=== PATIENT | male | born 1955 | race Caucasian/White ===

== ENCOUNTER 2016-09-18 09:31 | Day surgery (SDC) | payer OTHER, BC ==
[~2016-09-18] VITALS: Ht 190.5 cm; Wt 156.0 kg
[2016-09-18] MEDS: hydroCHLOROthiazide 25 MG TAB PO SCH (09:00)
[2016-09-18] MEDS: LISINOPRIL 40 MG TAB PO SCH (09:00)
[2016-09-18] MEDS: ENOXAPARIN 40 MG/0.4 ML SYRINGE (J1650) SC SCH (09:00)
[~2016-09-18 09:31] MED LIST: ACET650T12 PO; ASPI81TA83; ASPI81TAEC PO; COLA100C2; GLIM2TAB PO; GLIMEPIRIDE 2 MG TAB PO SCH; GLUC1000; LISI10TA4; LISI20TA PO; LOPR50TA; MELO15TA4 PO; METF1000 PO; METO50TA2 PO; PIOG15TA3 PO; SIMV10TA2; SIMV10TA2 PO; SYNT75TA PO; VICO5TAB; VITA100066 PO
[2016-09-18] MEDS ORDERED: LR 1,000 ML IV ONE (09:45)
[2016-09-18 10:24] LABS: ANION GAP 8 MEQ/L (8-16); BLOOD UREA NITROGEN 21 MG/DL (7-18); CALCIUM LEVEL 9.3 MG/DL (8.8-10.2); CARBON DIOXIDE LEVEL 26 MEQ/L (21-32); CHLORIDE LEVEL 101 MEQ/L (98-107); CREATININE FOR GFR 0.91 MG/DL (0.70-1.30); GLOMERULAR FILTRATION RATE > 60.0 (>49); GLUCOSE, FASTING 316 MG/DL (80-110); POTASSIUM SERUM 5.1 MEQ/L (3.5-5.1); SODIUM LEVEL 135 MEQ/L (136-145)
[2016-09-18] MEDS ORDERED: PROPOFOL 200 MG/20 ML VIAL As Ordered ONE (10:27)
[2016-09-18] MEDS ORDERED: ROCURONIUM BROMIDE 50 MG/5 ML VIAL As Ordered ONE ×4 (10:27→15:21)
[2016-09-18] MEDS ORDERED: MIDAZOLAM INJ 2 MG/2 ML VIAL (J2250) As Ordered ONE (10:28)
[2016-09-18] MEDS ORDERED: ONDANSETRON 4MG/2ML VIAL (J2405) As Ordered ONE ×2 (10:28→17:29)
[2016-09-18] MEDS ORDERED: LIDOCAINE 2% INJ 100 MG/5 ML SDV (FOR ANES.) As Ordered ONE (10:28)
[2016-09-18] MEDS ORDERED: fentaNYL 100 MCG/2 ML INJECTION (J3010) As Ordered ONE ×5 (10:28→17:29)
[2016-09-18] MEDS ORDERED: METOPROLOL TART 25 MG TABLET As Ordered ONE (11:49)
[2016-09-18] MEDS ORDERED: LIDOCAINE 1% SDV INJ 30 ML VIAL As Ordered ONE (11:56)
[2016-09-18] MEDS ORDERED: BUPIVACAINE HCL 0.25% 30 ML VIAL As Ordered ONE (11:56)
[2016-09-18] MEDS ORDERED: METOPROLOL TART 25 MG TABLET PO ONE (12:00)
[2016-09-18] MEDS ORDERED: SUCCINYLCHOLINE 100 MG/5 ML SYRINGE (J0330) As Ordered ONE (12:28)
[2016-09-18] MEDS ORDERED: ePHEDrine SULFATE 25 MG/5 ML(5MG/ML) SYRINGE As Ordered ONE (13:07)
[2016-09-18] MEDS ORDERED: METOPROLOL 5 MG/5 ML VIAL As Ordered ONE (16:11)
[2016-09-18] MEDS ORDERED: ESMOLOL INJ 100MG/10ML VIAL As Ordered ONE (16:13)
[2016-09-18] MEDS ORDERED: NEOSTIGMINE 1MG/ML 5 ML SYRINGE (J2710) As Ordered ONE (16:20)
[2016-09-18] MEDS: fentaNYL 100 MCG/2 ML INJECTION (J3010) IV PRN ×3 (16:40→17:52)
[2016-09-18] MEDS ORDERED: NORCO, ANEXSIA 5/325MG TABLET (HYDROcodone/ACETAMINOPHEN) PO PRN (17:00)
[2016-09-18] MEDS ORDERED: KETOROLAC 30 MG/ML VIAL (J1885) IV PRN (17:00)
[2016-09-18] MEDS ORDERED: MORPHINE 4 MG/ML 1ML SYRINGE IV PRN (17:00)
[2016-09-18] MEDS ORDERED: ACETAMINOPHEN TAB 650MG DOSE (2X325MG) PO PRN (17:00)
[2016-09-18] MEDS ORDERED: ONDANSETRON 4MG/2ML VIAL (J2405) IV PRN ×2 (17:00→17:15)
[2016-09-18] MEDS ORDERED: KETOROLAC 30 MG/ML VIAL (J1885) As Ordered ONE (17:13)
[2016-09-18] MEDS ORDERED: LR 1,000 ML IV SCH (17:15)
[2016-09-18] MEDS ORDERED: HYDROmorphone HCL 1 MG/ML SYRINGE (J1170) As Ordered ONE (17:47)
[2016-09-18] MEDS: HYDROmorphone HCL 1 MG/ML SYRINGE (J1170) IV PRN ×3 (18:05→18:20)
[2016-09-18] MEDS ORDERED: NORCO, ANEXSIA 5/325MG TABLET (HYDROcodone/ACETAMINOPHEN) As Ordered ONE (18:24)
[2016-09-18 19:15] VITALS: BP 140/76
[2016-09-18 20:45] VITALS: BP 129/74
[2016-09-18] MEDS ORDERED: SIMVASTATIN 10 MG TAB PO SCH (21:00)
[2016-09-18 21:45] VITALS: BP 136/73
[2016-09-18] MEDS: LR 1,000 ML IV SCH (22:12)
[2016-09-18] MEDS: ceFAZolin SOD 2 GM in D5W MINI-BAG PLUS 50 ML IV SCH (22:12)
[2016-09-18] MEDS: SENOKOT S TAB PO SCH (22:13)
[2016-09-18] MEDS: METOPROLOL TART 50 MG TAB PO SCH (22:13)
[2016-09-18 22:45] VITALS: BP 142/83
[2016-09-18 23:45] VITALS: BP 156/81
[2016-09-19 00:45] VITALS: BP 131/75
[2016-09-19] MEDS: LR 1,000 ML IV SCH ×2 (00:58→08:41)
[2016-09-19] MEDS: NORCO, ANEXSIA 5/325MG TABLET (HYDROcodone/ACETAMINOPHEN) PO PRN ×3 (02:12→15:10)
[2016-09-19 04:45] VITALS: BP 133/78
[2016-09-19] MEDS: ceFAZolin SOD 2 GM in D5W MINI-BAG PLUS 50 ML IV SCH (05:33)
[2016-09-19] MEDS ORDERED: LEVOTHYROXINE 0.075 MG TAB (75 MCG) PO SCH (06:00)
[2016-09-19 06:56] LABS: ADD MORPHOLOGY? YES; BASO # 0.1 K/mm3 (0.0-0.2); BASO % 0.6 % (0.0-1.0); EOS # 0.1 K/mm3 (0.0-0.50); EOS % 0.7 % (0.0-3.0); LARGE UNSTAINED CELL # 0.3 K/mm3 (0.0-0.4); LARGE UNSTAINED CELL % 2.1 % (0.0-4.0); LYMPH # 2.8 K/mm3 (1.5-4.5); LYMPH % 19.9 % (24.0-44.0); MEAN CORPUSCULAR HEMOGLOBIN 22.5 pg (27.0-33.0); MEAN CORPUSCULAR HGB CONC 31.6 g/dl (32.0-36.5); MEAN CORPUSCULAR VOLUME 71.1 fl (80.0-96.0); MONO # 0.9 K/mm3 (0.0-0.8); MONO % 6.1 % (0.0-5.0); NEUTROPHILS % 70.5 % (36.0-66.0); PLATELET COUNT, AUTOMATED 291 k/mm3 (150-450); RED CELL DISTRIBUTION WIDTH 16.3 % (11.5-14.5); WHITE BLOOD COUNT 14.2 K/mm3 (4.0-10.0)
[2016-09-19 06:57] LABS: ANION GAP 8 MEQ/L (8-16); BLOOD UREA NITROGEN 18 MG/DL (7-18); CALCIUM LEVEL 8.1 MG/DL (8.8-10.2); CARBON DIOXIDE LEVEL 28 MEQ/L (21-32); CHLORIDE LEVEL 99 MEQ/L (98-107); CREATININE FOR GFR 1.03 MG/DL (0.70-1.30); GLOMERULAR FILTRATION RATE > 60.0 (>49); GLUCOSE, FASTING 284 MG/DL (80-110); POTASSIUM SERUM 4.2 MEQ/L (3.5-5.1); SODIUM LEVEL 135 MEQ/L (136-145)
[2016-09-19] MEDS ORDERED: GLIMEPIRIDE 2 MG TAB PO SCH (07:30)
[2016-09-19 07:44] LABS: ANISOCYTOSIS 1+; HYPOCHROMASIA 1+; MICROCYTOSIS 2+
[2016-09-19] MEDS ORDERED: metFORMIN (GLUCOPHAGE) 1000 MG TABLET PO SCH (08:00)
[2016-09-19 08:40] VITALS: BP 133/78
[2016-09-19] MEDS: LISINOPRIL 40 MG TAB PO SCH (08:40)
[2016-09-19] MEDS: SENOKOT S TAB PO SCH (08:40)
[2016-09-19] MEDS: METOPROLOL TART 50 MG TAB PO SCH (08:40)
[2016-09-19] MEDS: hydroCHLOROthiazide 25 MG TAB PO SCH (08:41)
[2016-09-19] MEDS: ENOXAPARIN 40 MG/0.4 ML SYRINGE (J1650) SC SCH (08:41)
[2016-09-19] MEDS ORDERED: CELE-19 PO (12:21)
[2016-09-19 14:00] VITALS: BP 168/82
--- NOTE | 2016-09-19 18:32 | ECGEPIP ---
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
--- NOTE | 2016-10-08 11:37 | RO ---
DATE OF PROCEDURE: 09/18/2016 PREPROCEDURE DIAGNOSIS: Incisional hernia. POSTPROCEDURE DIAGNOSIS: Incisional hernia. PROCEDURE PERFORMED: Robotic-assisted laparoscopic incisional hernia repair with placement of Ventralight mesh, 12 cm round mesh was placed. ANESTHESIA: General anesthesia. ESTIMATED BLOOD LOSS: 25 mL. COMPLICATIONS: None. DRAINS: None. REMARKS: The patient tolerated the procedure well. PROCEDURE NOTE: Mr. Morin is a 61-year-old gentleman, morbidly obese, Body Mass Index (BMI) of 43, who awhile ago had an accident while at work and needed emergency laparotomy and splenectomy. He subsequently developed midline incisional hernia just above his umbilicus. The patient received Ancef 2 grams IV preoperatively. He was brought to the operating room and placed supine on the table. Compression boots placed on both legs for deep vein thrombosis (DVT) prophylaxis. General endotracheal anesthesia was started. His abdomen was then prepped and draped in usual sterile fashion. After a surgical time-out, we began our surgery. Entry to the abdomen was done through an incision on the left upper quadrant area. A Veress needle was inserted. Intra-abdominal insufflation started to a pressure of 15 mmHg. Using the same incision, a 12 mm port was placed under direct vision of laparoscope. On entry, there were some omental adhesions right around where the entry was. The patient was placed in a slight right lateral decubitus position. A working port was placed over the left lower quadrant area. Lysis of adhesions performed to free up the area on the midportion of the left lateral side of the abdomen and around the initial port site of entry. A robotic camera trocar was then placed in between the two trocars on the left lateral side. The da Jesus robot tower was then maneuvered in place. The trocars docked onto the robot. I took control of the camera and instruments at the surgeon's console. On diagnostic laparoscopy, there was good amount of adhesions covering the defect, which includes portions of the small bowel adhered inside of the hernia defect. Meticulous dissection was performed to free up the bowel, as well as the omentum. It took about an hour to lyse all the adhesions and free up the bowel. Once this was done, we also brought down the falciform ligament to accommodate the mesh placement. The hernia sac was dissected free off onto the abdominal wall and removed. The preperitoneal space was dissected to decrease the tension at the hernia edges. Using a 0 V-Loc. the hernia defect was closed in a running fashion. Two strands of V-Loc was used at the superior and inferior edge, which met at the middle. While doing this, the abdominal pressure was sequentially decreased to allow for closure. Once the abdomen was closed, we measured the defect, which was about 6 cm vertically. I chose a 12 cm round Ventralight composite mesh. This was introduced into the abdomen, pulled the drain for the insufflation of the balloon was pulled out at the middle of the incision. The balloon was inflated. The mesh was then secured into the abdomen using a 2 V-Loc circumferentially run around the abdomen with adequate coverage of the hernia defect. After doing so, we surveyed the abdomen and removed the hernia sac. The abdomen was then deflated. All ports removed. I scrubbed back in. The fascial defect over the 12 mm port was closed with 0 Vicryl in a mattress fashion. The rest of the skin incisions were closed with #4-0 Monocryl in a subcuticular fashion. Dermabond was then used for dressing. The patient was promptly awakened, extubated, brought to recovery room stable.
== END 2016-09-19 15:50 | disposition home or self-care (01) ==
LOC: M SDC 09:31 → M MS5PR 16:58 → M SDC 09-19 15:50
PROVIDERS: ATTEND Surgery
DX: K43.0 Incisional hernia with obstruction, without gangrene (principal); I10 Essential (primary) hypertension; E78.00 Pure hypercholesterolemia, unspecified; E11.9 Type 2 diabetes mellitus without complications; E03.9 Hypothyroidism, unspecified; M12.9 Arthropathy, unspecified; E66.01 Morbid (severe) obesity due to excess calories; Z79.899 Other long term (current) drug therapy; Z79.82 Long term (current) use of aspirin
CPT/HCPCS: 36415; 49654; 80048; 85025; 93005; 96372; 96374; 96375; C1781; J0330; J0690; J1170; J1650; J1885; J2250; J2405; J2710; J3010

== ENCOUNTER 2017-07-08 10:23 | Inpatient (IN) | payer BC, OTHER ==
[2017-07-08] MEDS: METOPROLOL 5 MG/5 ML VIAL IV ×3 (11:02→11:20)
[2017-07-08 11:08] LABS: BASO # 0.1 10^3/uL (0.0-0.2); BASO % 1.2 % (0.0-1.0); EOS # 0.3 10^3/uL (0.0-0.50); HEMATOCRIT 30.8 % (42.0-52.0); HEMOGLOBIN 10.1 g/dl (14.0-18.0); IMMATURE GRANULOCYTE % 0.3 % (0-3.0); LYMPH # 2.6 10^3/uL (1.5-4.5); LYMPH % 25.6 % (24.0-44.0); MEAN CORPUSCULAR HEMOGLOBIN 21.5 pg (27.0-33.0); MEAN CORPUSCULAR HGB CONC 32.8 g/dl (32.0-36.5); MEAN CORPUSCULAR VOLUME 65.7 fl (80.0-96.0); MONO # 0.9 10^3/uL (0.0-0.8); MONO % 8.5 % (0.0-5.0); NEUTROPHILS # 6.1 10^3/uL (1.8-7.7); NEUTROPHILS % 61.4 % (36.0-66.0); PLATELET COUNT, AUTOMATED 450 10^3/uL (150-450); RED BLOOD COUNT 4.69 10^6/uL (4.30-6.10); RED CELL DISTRIBUTION WIDTH 16.7 % (11.5-14.5)
[2017-07-08 11:27] LABS: INR 0.98; PROTHROMBIN TIME 13.1 SECONDS (12.4-14.5)
[2017-07-08 11:28] LABS: ANION GAP 9 MEQ/L (8-16); BLOOD UREA NITROGEN 23 MG/DL (7-18); CALCIUM LEVEL 9.2 MG/DL (8.8-10.2); CARBON DIOXIDE LEVEL 26 MEQ/L (21-32); CHLORIDE LEVEL 103 MEQ/L (98-107); CPK CREATINE PHOSPHOKINASE 77 U/L (39-308); CREATININE FOR GFR 0.93 MG/DL (0.70-1.30); GLOMERULAR FILTRATION RATE > 60.0 (>49); GLUCOSE, FASTING 140 MG/DL (70-100); PARTIAL THROMBOPLASTIN TIME 29.8 SECONDS (26.8-37.9); POTASSIUM SERUM 4.2 MEQ/L (3.5-5.1); SODIUM LEVEL 138 MEQ/L (136-145); TROPONIN I < 0.02 NG/ML (< 0.10)
[2017-07-08 11:29] LABS: CK-MB VALUE MASS 1.2 NG/ML (0.0-3.6); MB/CK RELATIVE INDEX 1.55 (< OR =4)
[2017-07-08 11:38] LABS: PHOSPHORUS LEVEL 3.5 MG/DL (2.5-4.9)
[2017-07-08 11:38] LABS: FREE T4 1.07 NG/DL (0.76-1.46); MAGNESIUM LEVEL 2.1 MG/DL (1.8-2.4)
[2017-07-08 12:02] LABS: BEDSIDE GLUCOSE 145 MG/DL (80-115)
[2017-07-08] MEDS: DIGOXIN INJ 0.5 MG/2 ML AMP (J1160) IV (12:58)
[2017-07-08] MEDS ORDERED: GLUCAGON FOR INJ 1 MG VIAL (J1610) SC (13:30)
[2017-07-08] MEDS ORDERED: GLUCOSE 4 GM CHEW TABLET PO (13:30)
[2017-07-08] MEDS ORDERED: DEXTROSE 50% 50 ML SYRINGE IV (13:30)
[2017-07-08] MEDS: ENOXAPARIN 120 MG/0.8 ML SYR (J1650) SC (14:26)
[2017-07-08 17:49] LABS: BEDSIDE GLUCOSE 146 MG/DL (80-115)
[2017-07-08] MEDS: HumaLOG INSULIN (NovoLOG) PER UNIT SC ×2 (18:03→20:21)
[2017-07-08 18:53] LABS: CPK CREATINE PHOSPHOKINASE 69 U/L (39-308); MB/CK RELATIVE INDEX 1.44 (< OR =4); TROPONIN I < 0.02 NG/ML (< 0.10)
[2017-07-08] MEDS: METOPROLOL TART 50 MG TAB PO (20:20)
[2017-07-08 21:58] LABS: BEDSIDE GLUCOSE 159 MG/DL (80-115)
[2017-07-08] MEDS ORDERED: SLF 3 ML SYR IV (23:15)
[2017-07-09 02:17] LABS: CPK CREATINE PHOSPHOKINASE 63 U/L (39-308); MB/CK RELATIVE INDEX 1.58 (< OR =4); TROPONIN I < 0.02 NG/ML (< 0.10)
[2017-07-09 05:35] LABS: BASO # 0.1 10^3/uL (0.0-0.2); BASO % 1.3 % (0.0-1.0); EOS # 0.4 10^3/uL (0.0-0.50); EOS % 3.6 % (0.0-3.0); HEMATOCRIT 28.6 % (42.0-52.0); HEMOGLOBIN 9.4 g/dl (14.0-18.0); IMMATURE GRANULOCYTE % 0.3 % (0-3.0); LYMPH # 3.9 10^3/uL (1.5-4.5); LYMPH % 39.3 % (24.0-44.0); MEAN CORPUSCULAR HEMOGLOBIN 21.7 pg (27.0-33.0); MEAN CORPUSCULAR HGB CONC 32.9 g/dl (32.0-36.5); MEAN CORPUSCULAR VOLUME 66.1 fl (80.0-96.0); MONO # 0.9 10^3/uL (0.0-0.8); NEUTROPHILS # 4.6 10^3/uL (1.8-7.7); NEUTROPHILS % 46.5 % (36.0-66.0); PLATELET COUNT, AUTOMATED 376 10^3/uL (150-450); RED BLOOD COUNT 4.33 10^6/uL (4.30-6.10); RED CELL DISTRIBUTION WIDTH 16.5 % (11.5-14.5)
[2017-07-09 05:57] LABS: ALBUMIN 3.2 GM/DL (3.2-5.2); ALKALINE PHOSPHATASE 33 U/L (45-117); ALT/SGPT 11 U/L (12-78); ANION GAP 8 MEQ/L (8-16); AST/SGOT 7 U/L (7-37); BILIRUBIN,TOTAL 0.8 MG/DL (0.2-1.0); BLOOD UREA NITROGEN 19 MG/DL (7-18); CALCIUM LEVEL 8.6 MG/DL (8.8-10.2); CARBON DIOXIDE LEVEL 26 MEQ/L (21-32); CHLORIDE LEVEL 105 MEQ/L (98-107); CREATININE FOR GFR 0.86 MG/DL (0.70-1.30); GLOMERULAR FILTRATION RATE > 60.0 (>49); GLUCOSE, FASTING 98 MG/DL (70-100); MAGNESIUM LEVEL 2.3 MG/DL (1.8-2.4); POTASSIUM SERUM 3.7 MEQ/L (3.5-5.1); SODIUM LEVEL 139 MEQ/L (136-145); TOTAL PROTEIN 6.4 GM/DL (6.4-8.2)
[2017-07-09] MEDS: SLF 3 ML SYR IV ×3 (06:37→21:08)
[2017-07-09] MEDS: LEVOTHYROXINE 75MCG TABLET (0.075MG) PO (06:37)
[2017-07-09] MEDS: HumaLOG INSULIN (NovoLOG) PER UNIT SC ×4 (07:30→20:59)
[2017-07-09] MEDS: METOPROLOL TART 50 MG TAB PO ×2 (09:00→21:08)
[2017-07-09] MEDS: APIXABAN 5 MG TAB (ELIQUIS) PO ×2 (10:05→21:07)
[2017-07-09] MEDS: SIMVASTATIN 10 MG TAB PO (10:12)
[2017-07-09 11:11] LABS: CPK CREATINE PHOSPHOKINASE 63 U/L (39-308); MB/CK RELATIVE INDEX 1.58 (< OR =4); TROPONIN I < 0.02 NG/ML (< 0.10)
[2017-07-09 12:07] LABS: BEDSIDE GLUCOSE 192 MG/DL (80-115)
[2017-07-09] MEDS: ACETAMINOPHEN TAB 650MG DOSE (2X325MG) PO ×2 (13:55→21:08)
[2017-07-09] MEDS ORDERED: PROPOFOL 200 MG/20 ML VIAL As Ordered (14:33)
[2017-07-09] MEDS ORDERED: LIDOCAINE 2% INJ 100 MG/5 ML SDV (FOR ANES.) As Ordered (14:33)
[2017-07-09] MEDS ORDERED: fentaNYL 100 MCG/2 ML INJECTION (J3010) As Ordered (14:34)
[2017-07-09] MEDS ORDERED: MIDAZOLAM INJ 2 MG/2 ML VIAL (J2250) As Ordered (14:34)
[2017-07-09] MEDS ORDERED: ONDANSETRON 4MG/2ML VIAL (J2405) As Ordered (14:37)
[2017-07-09] MEDS: CETACAINE SPRAY 5GM As Ordered (16:17)
[2017-07-09 17:40] LABS: BEDSIDE GLUCOSE 115 MG/DL (80-115)
[2017-07-09 21:11] LABS: BEDSIDE GLUCOSE 181 MG/DL (80-115)
[2017-07-10 05:51] LABS: BASO # 0.1 10^3/uL (0.0-0.2); BASO % 1.4 % (0.0-1.0); EOS # 0.4 10^3/uL (0.0-0.50); EOS % 4.1 % (0.0-3.0); HEMATOCRIT 28.6 % (42.0-52.0); HEMOGLOBIN 9.4 g/dl (14.0-18.0); IMMATURE GRANULOCYTE % 0.3 % (0-3.0); LYMPH # 2.4 10^3/uL (1.5-4.5); LYMPH % 24.3 % (24.0-44.0); MEAN CORPUSCULAR HEMOGLOBIN 21.7 pg (27.0-33.0); MEAN CORPUSCULAR HGB CONC 32.9 g/dl (32.0-36.5); MEAN CORPUSCULAR VOLUME 65.9 fl (80.0-96.0); MONO % 9.8 % (0.0-5.0); NEUTROPHILS # 5.9 10^3/uL (1.8-7.7); NEUTROPHILS % 60.1 % (36.0-66.0); PLATELET COUNT, AUTOMATED 388 10^3/uL (150-450); RED BLOOD COUNT 4.34 10^6/uL (4.30-6.10); RED CELL DISTRIBUTION WIDTH 16.3 % (11.5-14.5); WHITE BLOOD COUNT 9.7 10^3/uL (4.0-10.0)
[2017-07-10] MEDS: LEVOTHYROXINE 75MCG TABLET (0.075MG) PO (06:05)
[2017-07-10 06:06] LABS: ALBUMIN 3.4 GM/DL (3.2-5.2); ALBUMIN/GLOBULIN RATIO 1.06 (1.00-1.93); ALKALINE PHOSPHATASE 36 U/L (45-117); ALT/SGPT 13 U/L (12-78); ANION GAP 6 MEQ/L (8-16); AST/SGOT 6 U/L (7-37); BILIRUBIN,TOTAL 0.9 MG/DL (0.2-1.0); BLOOD UREA NITROGEN 17 MG/DL (7-18); CALCIUM LEVEL 8.6 MG/DL (8.8-10.2); CARBON DIOXIDE LEVEL 30 MEQ/L (21-32); CHLORIDE LEVEL 103 MEQ/L (98-107); CREATININE FOR GFR 0.91 MG/DL (0.70-1.30); GLOMERULAR FILTRATION RATE > 60.0 (>49); GLUCOSE, FASTING 133 MG/DL (70-100); MAGNESIUM LEVEL 2.3 MG/DL (1.8-2.4); POTASSIUM SERUM 3.8 MEQ/L (3.5-5.1); SODIUM LEVEL 139 MEQ/L (136-145); TOTAL PROTEIN 6.6 GM/DL (6.4-8.2)
[2017-07-10] MEDS: SLF 3 ML SYR IV (06:06)
[2017-07-10] MEDS: HumaLOG INSULIN (NovoLOG) PER UNIT SC ×2 (08:37→12:14)
[2017-07-10] MEDS: SIMVASTATIN 10 MG TAB PO (08:38)
[2017-07-10] MEDS: APIXABAN 5 MG TAB (ELIQUIS) PO (08:39)
[2017-07-10] MEDS: METOPROLOL TART 50 MG TAB PO (08:39)
[2017-07-10 12:09] LABS: BEDSIDE GLUCOSE 154 MG/DL (80-115)
== END 2017-07-10 15:30 | disposition home or self-care (01) | DRG 201 ==
LOC: M ED 10:23 → M ED INP 13:41 → M PCU 22:43
PROC: 5A2204Z Restoration of Cardiac Rhythm, Single (ICD-10-PCS; principal; 2017-07-09 13:30)
PROC: B246ZZ4 Ultrasonography of Right and Left Heart, Transesophageal (ICD-10-PCS; 2017-07-09 13:30)
DX: I48.3 Typical atrial flutter (principal); I10 Essential (primary) hypertension; Z68.41 Body mass index [BMI] 40.0-44.9, adult; E11.9 Type 2 diabetes mellitus without complications; E03.9 Hypothyroidism, unspecified; D53.9 Nutritional anemia, unspecified; E66.01 Morbid (severe) obesity due to excess calories; E78.5 Hyperlipidemia, unspecified; K21.9 Gastro-esophageal reflux disease without esophagitis; M19.071 Primary osteoarthritis, right ankle and foot; Z79.82 Long term (current) use of aspirin; Z79.84 Long term (current) use of oral hypoglycemic drugs; Z79.899 Other long term (current) drug therapy

== ENCOUNTER → 2017-08-11 | Day surgery (SDC) | payer OTHER, BC ==
[~2017-08-11] MED LIST changes: -ACET650T12 PO; -ASPI81TA83; -ASPI81TAEC PO; -COLA100C2; -GLIM2TAB PO; -GLIMEPIRIDE 2 MG TAB PO SCH; -GLUC1000; -LISI10TA4; -LISI20TA PO; -LOPR50TA; +LR 1,000 ML IV; -MELO15TA4 PO; -METF1000 PO; -METO50TA2 PO; -PIOG15TA3 PO; -SIMV10TA2; -SIMV10TA2 PO; -SYNT75TA PO; -VICO5TAB; -VITA100066 PO
== END | disposition home or self-care (01) ==
LOC: M SDC 06:38
DX: Z53.09 Procedure and treatment not carried out because of other contraindication (principal); M19.071 Primary osteoarthritis, right ankle and foot

== ENCOUNTER 2017-08-15 09:17 | Day surgery (SDC) | payer OTHER ==
[~2017-08-15 09:17] MED LIST changes: +LIDOCAINE 2% INJ 100 MG/5 ML SDV (FOR ANES.) As Ordered; -LR 1,000 ML IV; +MIDAZOLAM INJ 2 MG/2 ML VIAL (J2250) As Ordered; +PROPOFOL 200 MG/20 ML VIAL As Ordered; +ROCURONIUM BROMIDE 50 MG/5 ML VIAL As Ordered; +fentaNYL 100 MCG/2 ML INJECTION (J3010) As Ordered
[2017-08-15 10:34] LABS: BEDSIDE GLUCOSE 194 MG/DL (80-115)
[2017-08-15] MEDS: LR 1,000 ML IV ×3 (10:45→17:32)
[2017-08-15] MEDS ORDERED: BUPIVACAINE HCL 0.5% 30 ML VIAL As Ordered (10:58)
[2017-08-15] MEDS: CEFAZOLIN SOD 1 GM in APPROPRIATE DILUENT 1 EA IV ×2 (11:07→21:08)
[2017-08-15] MEDS ORDERED: HYDROmorphone HCL 2 MG/ML 1ML VIAL (J1170) As Ordered (11:16)
[2017-08-15] MEDS ORDERED: ROCURONIUM BROMIDE 50 MG/5 ML VIAL As Ordered (11:37)
[2017-08-15] MEDS ORDERED: fentaNYL 100 MCG/2 ML INJECTION (J3010) As Ordered (11:42)
[2017-08-15] MEDS ORDERED: ONDANSETRON 4MG/2ML VIAL (J2405) As Ordered (12:13)
[2017-08-15] MEDS ORDERED: METOCLOPRAMIDE INJ 10MG/2ML VIAL (J2765) As Ordered (12:13)
[2017-08-15] MEDS ORDERED: GLYCOPYRROLATE INJ 0.2 MG/ML 2 ML VIAL As Ordered (12:13)
[2017-08-15] MEDS ORDERED: NORCO, ANEXSIA 5/325MG TABLET (HYDROcodone/ACETAMINOPHEN) As Ordered ×2 (15:44→16:11)
[2017-08-15] MEDS: NORCO, ANEXSIA 5/325MG TABLET (HYDROcodone/ACETAMINOPHEN) PO ×2 (15:45→16:15)
[2017-08-15 15:50] LABS: BEDSIDE GLUCOSE 208 MG/DL (80-115)
[2017-08-15] MEDS ORDERED: oxyCODONE 5MG TAB PO (16:30)
[2017-08-15] MEDS ORDERED: FLEET ENEMA PR (16:30)
[2017-08-15] MEDS: oxyCODONE 5MG TAB PO ×2 (16:45→21:10)
[2017-08-15] MEDS: HumaLOG INSULIN (NovoLOG) PER UNIT SC ×2 (18:36→22:46)
[2017-08-15] MEDS: MORPHINE 4 MG/ML 1ML VIAL (J2270) IV (18:42)
[2017-08-15] MEDS: METOPROLOL TART 50 MG TAB PO (20:07)
[2017-08-15] MEDS: ACETAMINOPHEN 500 MG TAB PO (21:09)
[2017-08-15 22:01] LABS: BEDSIDE GLUCOSE 306 MG/DL (80-115)
[2017-08-15 22:01] LABS: BEDSIDE GLUCOSE 251 MG/DL (80-115)
[2017-08-16] MEDS: oxyCODONE 5MG TAB PO ×3 (02:22→10:57)
[2017-08-16] MEDS: LR 1,000 ML IV (02:53)
[2017-08-16] MEDS: CEFAZOLIN SOD 1 GM in APPROPRIATE DILUENT 1 EA IV (03:32)
[2017-08-16] MEDS: LEVOTHYROXINE 75MCG TABLET (0.075MG) PO (06:00)
[2017-08-16] MEDS: ACETAMINOPHEN 500 MG TAB PO (06:18)
[2017-08-16 06:56] LABS: HEMATOCRIT 30.6 % (42.0-52.0); HEMOGLOBIN 10.1 g/dl (13.5-17.5); MEAN CORPUSCULAR HEMOGLOBIN 21.6 pg (27.0-33.0); MEAN CORPUSCULAR VOLUME 65.4 fl (80.0-96.0); PLATELET COUNT, AUTOMATED 371 10^3/uL (150-450); RED BLOOD COUNT 4.68 10^6/uL (4.30-6.10); RED CELL DISTRIBUTION WIDTH 15.7 % (11.5-14.5); WHITE BLOOD COUNT 13.1 10^3/uL (4.0-10.0)
[2017-08-16 07:20] LABS: INR 1.06; PROTHROMBIN TIME 13.9 SECONDS (12.4-14.5)
[2017-08-16] MEDS: HumaLOG INSULIN (NovoLOG) PER UNIT SC (07:30)
[2017-08-16] MEDS: APIXABAN 5 MG TAB (ELIQUIS) PO (09:20)
[2017-08-16] MEDS: METOPROLOL TART 50 MG TAB PO (09:20)
== END 2017-08-16 12:40 | disposition home or self-care (01) ==
LOC: M SDC 09:17 → M MS5PR 17:05
DX: M19.071 Primary osteoarthritis, right ankle and foot (principal); E03.9 Hypothyroidism, unspecified; I10 Essential (primary) hypertension; E11.9 Type 2 diabetes mellitus without complications; I48.3 Typical atrial flutter; E78.00 Pure hypercholesterolemia, unspecified; R06.83 Snoring; R94.31 Abnormal electrocardiogram [ECG] [EKG]; E66.09 Other obesity due to excess calories; Z68.41 Body mass index [BMI] 40.0-44.9, adult; Z79.899 Other long term (current) drug therapy; Z79.01 Long term (current) use of anticoagulants
CPT/HCPCS: 28740

== ENCOUNTER → 2019-06-02 | Outpatient (CLI) | payer OTHER ==
[~2019-06-02] MED LIST changes: +ACET-897 PO; +ACET650T12 PO; +ASPI81TA83; +ASPI81TAEC PO; +ATOR1TAB21 PO; +ATOR40TA75 PO; +BARI1CAP PO; +BIOF4GEL2 TOP; +CELE1CAP4 PO; +COLA100C2; +ELIQ5TAB PO; +FARX1TAB3 PO; +GLIM2TAB4 PO; +GLIM4TAB5 PO; +GLUC1000; +HUMU1INJ2 SC; +HYDR-3713 PO; -LIDOCAINE 2% INJ 100 MG/5 ML SDV (FOR ANES.) As Ordered; +LISI10TA4; +LISI20TA19 PO; +LOPR50TA; +MELO15TA28 PO; +METF-839 PO; +METF10004 PO; +METO50TA7 PO; -MIDAZOLAM INJ 2 MG/2 ML VIAL (J2250) As Ordered; +OXYC-517 PO; +PIOG1TAB36 PO; -PROPOFOL 200 MG/20 ML VIAL As Ordered; -ROCURONIUM BROMIDE 50 MG/5 ML VIAL As Ordered; +SIMV10TA2; +SIMV10TA21 PO; +SPIR-10 PO; +SYNT75TA PO; +TRAM50TA2 PO; +TUMS500C PO; +TYLE500T78 PO; +TYLE650T35 PO; +ULTR5TAB PO; +VICO5TAB; +VITA100066 PO; +VITA500079 PO; -fentaNYL 100 MCG/2 ML INJECTION (J3010) As Ordered
[2019-06-02 09:25] LABS: HEMOGLOBIN 11.7 g/dl (13.5-17.5); MEAN CORPUSCULAR HGB CONC 32.5 g/dl (32.0-36.5); MEAN CORPUSCULAR VOLUME 67.8 fl (80.0-96.0); PLATELET COUNT, AUTOMATED 509 10^3/uL (150-450); RED BLOOD COUNT 5.31 10^6/uL (4.30-6.10)
[2019-06-02 09:35] LABS: INR 1.23; PROTHROMBIN TIME 15.2 SECONDS (11.8-14.0)
[2019-06-02 09:45] LABS: ERYTHROCYTE SEDIMENTATION RATE 6 mm/hr (0-20)
[2019-06-02 09:50] LABS: ALBUMIN 3.9 GM/DL (3.2-5.2); ALT/SGPT 16 U/L (12-78); BILIRUBIN,TOTAL 1.2 MG/DL (0.2-1.0); BLOOD UREA NITROGEN 18 MG/DL (7-18); CALCIUM LEVEL 9.5 MG/DL (8.8-10.2); CARBON DIOXIDE LEVEL 25 MEQ/L (21-32); CHLORIDE LEVEL 104 MEQ/L (98-107); CREATININE FOR GFR 0.62 MG/DL (0.70-1.30); GLOMERULAR FILTRATION RATE > 60.0 (>49); GLUCOSE, FASTING 112 MG/DL (70-100); POTASSIUM SERUM 4.3 MEQ/L (3.5-5.1); SODIUM LEVEL 138 MEQ/L (136-145); TOTAL PROTEIN 7.1 GM/DL (6.4-8.2)
--- NOTE | 2019-06-02 19:46 | REP ---
Chest x-ray: Two views. History: Right knee osteoarthritis. Comparison study July 08, 2017. Findings: The lungs are well inflated and free of infiltrate. Heart is not enlarged. The aorta somewhat tortuous. Pulmonary vasculature is not increased. There are mild degenerative changes in the thoracic spine. Impression: No active disease. Electronically Signed by Moshe Stephens MD 06/02/2019 07:37 P
--- NOTE | 2019-06-02 19:54 | ECGEPIP ---
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
== END ==
LOC: M LAB 08:35
PROVIDERS: ATTEND Orthopaedic Surgery
DX: Z01.818 Encounter for other preprocedural examination (principal); I25.2 Old myocardial infarction; R94.31 Abnormal electrocardiogram [ECG] [EKG]

== ENCOUNTER 2019-06-21 09:12 | Inpatient (IN) | payer OTHER ==
--- NOTE | 2019-06-07 13:44 | HPE ---
DATE OF ADMISSION: 06/21/2019 CHIEF COMPLAINT: Right knee pain. HISTORY OF PRESENT ILLNESS: Mark is a pleasant 64-year-old male with progressively worsening right knee pain and stiffness. He has failed to improve with conservative treatment. He has elected for surgery for his continued symptoms. He has pain with weightbearing activities and his activities of daily living. X-rays of his knee are notable for advanced osteoarthritis of the right knee joint. He has consented for a right total knee arthroplasty by Dr. Elie Ray. Medical optimization was performed by Niurka Quintero. ALLERGIES: No allergies. CURRENT MEDICATIONS: Atorvastatin 20 mg 1/2 tablet at night, vitamin D3 5000 units twice a day, Synthroid 75 mcg once a day, Farxiga 10 mg once a day, metformin four 500 mg tablets times one a day Tylenol Extra Strength as needed, tramadol 50 mg one every 4-6 hours, hydrocodone/acetaminophen as needed, bariatric fusion chewable dietary supplement two tablets in the a.m. and two in the p.m., Biotin 5000 mcg twice daily, and Humalog 100 units per mL as needed. PAST MEDICAL HISTORY: Includes diabetes, hypertension and hypothyroidism. PAST SURGICAL HISTORY: Includes gastric sleeve, a left foot procedure in 1994, right foot in 2018, left shoulder kin 1997, splenectomy in 2006, and hernia repair in 2017. 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 He does not smoke. Occasionally drinks alcohol. FAMILY HISTORY: Noncontributory. REVIEW OF SYSTEMS: This patient denies chest pain, heart palpitations, cough, wheezing, difficulty breathing, and shortness of breath. He denies abdominal pain, nausea, vomiting, diarrhea, or constipation. He denies recent upper respiratory infection or urinary tract infection symptoms. He does complain of persistent pain in the right knee and pain with weightbearing activities in his right knee. PHYSICAL EXAMINATION: General: He is a well-nourished, well-developed, in no acute distress, alert male patient. He ambulates with a moderate limp favoring both lower extremities and he is using a single-leg cane. Vital Signs: He is 6 feet 2 inches tall, weighs 266 pounds, with a temperature of 97.5, blood pressure 123/84, pulse 74 and respirations of 12. Neck was supple without adenopathy or jugular venous distention. There were no carotid bruits appreciated. Lungs were clear to auscultation, without rales or wheeze. Heart: Regular rate and rhythm. Abdomen: Bowel sounds were present. Extremities: Examination of the knee revealed intact skin with obvious bony hypertrophy changes and decreased range of motion secondary to pain and stiffness. The limb is neurovascularly intact. LABORATORY DATA: Chest x-ray showed no acute cardiopulmonary disease processes. EKG showed sinus bradycardia with marked sinus arrhythmia read as an inferior myocardial infarction (AK), probably old, though Mark has never had a heart attack. He has had an ablation for atrial fibrillation. Protime 15.2, INR 1.23. CBC showed hemoglobin of 11.7, hematocrit of 36, MCV of 67.8, MCH of 22, red cell distribution width of 16.6, platelet count 509, with 0.6% nucleated red blood cells, and a sed rate of 6. It should be noted that the patient does have thalassemia. Complete metabolic profile showed a glucose of 112, BUN of 18, creatinine 0.62, sodium 138, and potassium 4.3. IMPRESSION: Symptomatic osteoarthritis of the right knee joint. PLAN: The patient is consented for a right total knee arthroplasty by Dr. Elie Ray.
[~2019-06-21] VITALS: Ht 188 cm; Wt 121.9 kg
[~2019-06-21 09:12] MED LIST changes: +LR 1,000 ML IV ONE; +ceFAZolin SOD 1 GM in D5W MINI-BAG PLUS 50 ML IV ONE; +ceFAZolin SOD 2 GM in IV 1 EA IV ONE
[2019-06-21] MEDS ORDERED: BUPIVACAINE HCL 0.25% 10 ML VIAL As Ordered ONE (09:33)
[2019-06-21] MEDS ORDERED: TRANEXAMIC ACID 100 MG/ML 10ML VIAL As Ordered ONE (09:33)
[2019-06-21] MEDS ORDERED: EPINEPHrine INJ 1 MG/ML 1ML VIAL As Ordered ONE (09:33)
[2019-06-21] MEDS ORDERED: ceFAZolin 1GM INJ (J0690 PER 500MG) As Ordered ONE (09:33)
[2019-06-21] MEDS ORDERED: BUPIVACAINE LIPOSOME/PF 1.3% 20ML VIAL (13.3MG/ML)(EXPAREL)(C9290 PER1MG) As Ordered ONE (09:34)
[2019-06-21] MEDS ORDERED: propofoL 500 MG/50 ML VIAL As Ordered ONE (09:52)
[2019-06-21] MEDS ORDERED: ONDANSETRON 4MG/2ML VIAL (J2405) As Ordered ONE (09:52)
[2019-06-21] MEDS ORDERED: LIDOCAINE 2% INJ 100 MG/5 ML SDV (FOR ANES.) As Ordered ONE (09:52)
[2019-06-21] MEDS ORDERED: dexameTHASONE 4 MG/ML 1ML VIAL (J1100) As Ordered ONE (09:53)
[2019-06-21] MEDS ORDERED: fentaNYL 100 MCG/2 ML INJECTION (J3010) As Ordered ONE ×3 (09:53→12:49)
[2019-06-21] MEDS ORDERED: MIDAZOLAM INJ 2 MG/2 ML VIAL (J2250) As Ordered ONE ×2 (10:08→10:44)
[2019-06-21] MEDS ORDERED: MIDAZOLAM INJ 2 MG/2 ML VIAL (J2250) IV ONE (10:45)
[2019-06-21] MEDS ORDERED: fentaNYL 100 MCG/2 ML INJECTION (J3010) IV ONE (10:45)
[2019-06-21] MEDS ORDERED: LIDOCAINE 1% MDV 20ML VIAL ONE (11:16)
[2019-06-21] MEDS ORDERED: ROPIvacaine 0.5% 30 ML INJECTION (J2795 PER 1MG) ONE (11:16)
[2019-06-21] MEDS ORDERED: dexameTHASONE 10 MG/1 ML VIAL PRES.FREE (J1100) ONE (11:16)
[2019-06-21] MEDS: fentaNYL 100 MCG/2 ML INJECTION (J3010) IV PRN ×4 (12:51→13:10)
[2019-06-21] MEDS ORDERED: HYDROMORPHONE HCL 0.5 MG/ 0.5 ML SYRINGE (J1170 PER 1) As Ordered ONE (13:09)
[2019-06-21] MEDS ORDERED: oxyCODONE 5MG TAB PO PRN (13:15)
[2019-06-21] MEDS ORDERED: MORPHINE 2 MG/ML 1ML VIAL (J2270) IV PRN (13:15)
[2019-06-21] MEDS: LR 1,000 ML IV SCH (13:15)
[2019-06-21] MEDS ORDERED: ONDANSETRON 4MG/2ML VIAL (J2405) IV PRN ×2 (13:15→13:30)
[2019-06-21] MEDS ORDERED: LR 1,000 ML IV SCH (13:15)
[2019-06-21] MEDS: HYDROMORPHONE HCL 0.5 MG/ 0.5 ML SYRINGE (J1170 PER 1) IV PRN ×2 (13:19→13:27)
--- NOTE | 2019-06-21 13:21 | REP ---
Knee two views postoperative study: There is a total knee arthroplasty with the components tightly applied and in satisfactory positions alignment. Skin melinda are incidentally noted. Electronically Signed by Omer Vaughn MD 06/21/2019 01:12 P
[2019-06-21] MEDS ORDERED: PERCOCET 5MG/325MG TAB PO PRN (13:30)
[2019-06-21 14:30] VITALS: BP 128/72
[2019-06-21] MEDS ORDERED: INSUHUMDS SC (14:36)
[2019-06-21] MEDS ORDERED: METF-791 PO (14:36)
[2019-06-21 15:00] VITALS: BP 130/74
--- NOTE | 2019-06-21 15:05 | RO ---
DATE OF PROCEDURE: 06/21/2019 PREOPERATIVE DIAGNOSIS: Right knee degenerative arthritis. POSTOPERATIVE DIAGNOSIS: Right knee degenerative arthritis. PROCEDURE: Right total knee arthroplasty using a size 7 cruciate retaining femoral component cemented and a size 7 tibial tray with an 8 mm polyethylene rotating platform insert with a 38 mm polyethylene button. Prosthesis was made by [employer]. It was an Attune knee. SURGEON: Dr. Estefani Saleem ENTRY LEVEL ASSISTANT MANAGER: Ms. Donna Powers ANESTHESIA: Spinal with right femoral nerve block. COMPLICATIONS: None. ESTIMATED BLOOD LOSS: 20 mL. SPECIMEN: Joint surface. DESCRIPTION OF PROCEDURE: Antibiotics were given intravenously preoperatively and a successful right femoral nerve block, then spinal anesthetic induced. Tourniquet was placed right upper thigh and not inflated. Right lower extremity was carefully prepped and draped in the usual sterile fashion. Then, the leg was elevated and after an appropriate time-out the tourniquet was inflated. Then, a longitudinal incision was made from medial parapatellar approach to the knee. Bovie cautery was used to coagulate crossing vessels. A medial parapatellar arthrotomy was performed. Subperiosteal dissection around the proximal medial and lateral tibia plateaus was performed. Then, we everted the patella, flexed the knee, debrided the anterior cruciate ligament (ACL), placed the drill down the center of the femoral canal, followed by the intramedullary morteza and the distal femoral cutting jig set at 5 degree valgus cut for a right knee. At 9 mm resection level, the block was pinned into position. Distal femoral cut was performed. AP sizing jig measured for a size 7. It was pinned into position with 3 degrees of external rotation dialed in. The 4-in-1 block applied, followed by the anterior, posterior chamfer cuts. The sulcus osteotomy was then performed using the sulcus jig, and then we exposed the proximal tibia and used the extramedullary alignment jig to estimate being parallel to the mechanical axis of the tibia referencing off the medial tibial condyle at 4 mm resection level. The block was pinned into position. A secondary check with the extramedullary morteza confirmed we appeared to be parallel. Proximal tibial osteotomy was thus performed. Once we were able to get the osteotomy free from the proximal tibia, we then placed the lamina bar pilot medially and performed a completion lateral meniscectomy with debridement of the posterior and lateral osteophytes, then placed the lamina bar pilot laterally and performed a completion medial meniscectomy and debridement of the posterior and medial osteophytes. An 8 mm spacer fit the best with good symmetry to varus and valgus stress testing both in flexion and in extension. We then exposed the proximal tibia and sized for a #7 tibial tray, which was pinned into position, followed by the reamer and broach, followed by the trial polyethylene, then the trial femoral component. Then, the knee was brought into extension. Patella everted. Patellar osteotomy was performed. Sized for a 38 button. Lug hole was drilled. Trial placed. The patellofemoral tracking was anatomic. We drilled the lug holes for the femur, then placed Exparel in the subperiosteal tissues around the distal femur and proximal tibia. Then, Ms. Donna Powers mixed the cement on the back table as I prepared the bony surfaces for cementing with a copious of pulsatile lavage irrigant solution. Ms. Donna Powers was critical to the success of this difficult procedure by helping with appropriate manipulation of the knee, helped with appropriate soft tissue retraction, helped to close the wound, helped to mix the cement, amongst many other tasks to allow me to perform the operation smoothly, efficiently and safely. Once all the bony surfaces were thoroughly irrigated and dried, we then cemented the tibial tray and removed excess cement. Brought the knee into extension. Cemented the polyethylene button, held it with a clamp, then removed all the excess cement and held the knee in full extension with clamp in place until the cement hardened, and as we were awaiting this we copiously irrigated out the knee joint. We then placed tranexamic acid into the knee, then closed the apex of arthrotomy with two #1 PDS sutures. The medial parapatellar area was closed with a #1 PDS suture and then we closed the capsule with a running double armed #1 Stratafix, then released the tourniquet. We then irrigated once again copiously. Then, we closed the deep subdermal tissues with interrupted #2-0 PDS suture. The skin was closed with melinda and covered by an Optifoam with dry sterile bulky dressing. He was then transferred to the recovery room in stable condition. There were no intraoperative complications.
--- NOTE | 2019-06-21 15:29 | CR ---
DATE OF CONSULTATION: 06/21/2019 REASON FOR CONSULTATION: Management of chronic medical problems. REFERRING PHYSICIAN: Orthopedic surgery, Dr. Elie Ray CHIEF COMPLAINT: Right knee osteoarthritis status post right total knee arthroplasty. HISTORY OF PRESENT ILLNESS: This is a 64-year-old male with a history of atrial flutter/atrial fibrillation, status post direct current cardioversion in 2018, hypertension, diabetes, hyperlipidemia, hypothyroidism, obesity, status post right total knee arthroplasty due to severe osteoarthritis, managed by primary team, Dr. Elie Ray with perioperative antibiotics, pain control and IV fluids. The patient denies any chest pain, pressure, tightness, palpitations, lightheadedness, fevers, chills, sore throat, rhinorrhea, nausea, vomiting, epigastric pain, bright red blood per rectum, melena, black tarry stools. Denies any dysuria, urgency, frequency, polyuria, polydipsia, weight gain, weight loss, night sweats, unusual lumps or bumps. Hospitalist was asked to consult to help manage chronic medical problems. Denies any headaches or changes in vision. PAST MEDICAL HISTORY: 1. Atrial flutter, status post direct current cardioversion by Dr. Fischer. 2. Diabetes. 3. Hypertension. 4. Hyperlipidemia. 5. Hypothyroidism. 6. Chronic right ankle pain. 7. Osteoarthritis. 8. Obesity. PAST SURGICAL HISTORY: 1. Left ankle arthroplasty. 2. Left shoulder surgery. 3. Right inguinal hernia repair. 4. Splenectomy in 2008. 5. Ventral hernia repair. SOCIAL HISTORY: , two children. 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 Two to three caffeinated beverages a day, one alcoholic beverage a week. Denies any smoking history or recreational drug use. FAMILY HISTORY: Mother with lung cancer. One sister with leukemia. Father with myocardial infarction. One brother alive with unknown medical problems. HOME MEDICATIONS: - acetaminophen 500 mg by mouth twice a day as needed for pain - atorvastatin 10 mg daily - hydrocodone/acetaminophen 5/325 mg one tablet by mouth at night as needed for pain - Humulin insulin 100 units by mouth before meals - Synthroid 75 mcg by mouth at night - metformin 2 grams daily - Tramadol 50 mg every 6 hours as needed for pain - Biotin 5 mg by mouth twice a day - vitamin D3 5000 units twice a day - Farxiga 10 mg daily - multivitamin two tablets twice a day ALLERGIES: No known drug allergies. HOSPITAL MEDICATIONS: - cefazolin - Percocet one to two tablets every 6 hours as needed - lactated ringers - Zofran 4 mg IV every 6 hours as needed - Dilaudid 0.2 mg every 5 minutes as needed - OxyIR 7.5 mg pain level 1 to 4 - Zofran 4 mg IV every 4 hours - morphine 2 mg IV every 2 hours as needed for 4 to 7 pain REVIEW OF SYSTEMS: As per history of present illness, 12-point system otherwise negative. PHYSICAL EXAMINATION: VITAL SIGNS: Temperature 97, pulse 89, respiratory rate 16, blood pressure 141/77, 97% on room air. GENERAL: Awake, alert, oriented to person, place and time. Answering questions appropriately. No jugular venous distention (JVD) or thyromegaly. No cervical lymphadenopathy. Moist mucous membranes. LUNGS: Clear to auscultation. No wheezing, rales or rhonchi. HEART: S1, S2. Regular rate and rhythm. No murmurs, rubs or gallops. ABDOMEN: Soft, nontender, nondistended. Positive bowel sounds. EXTREMITIES: Postoperative right knee. Distal pulses noted, dorsalis pedis and posterior tibialis. The patient's skin is warm and dry, well perfused, pink in color. LABORATORY DATA: Glucose 146, 157. IMAGING STUDIES: X-ray of the knee on 06/21/2019 postoperative right total knee arthroplasty with components tightly applied and in satisfactory position and alignment, skin melinda are incidentally noted. ASSESSMENT AND PLAN: This is a 64-year-old male with a history of diabetes, atrial flutter status post direct current cardioversion, dyslipidemia, hypothyroidism, chronic right ankle pain, osteoarthritis, obesity, who presents for a right total knee replacement due to severe osteoarthritis limiting activities of daily living. 1. Right total knee arthroplasty secondary to severe osteoarthritis with limitations of activities of daily living, postoperative management per primary team, orthopedic surgery, Dr. Ray, including perioperative antibiotics with cefazolin, pain medications, bowel regimen, and deep vein thrombosis (DVT) prophylaxis. 2. Diabetes. Continue on home insulin, long-acting insulin and sliding scale. Check A1/c level. 3. Hypothyroidism. Check TSH. Resume home dose of Levothyroxine 75 mcg daily. 4. Vitamin D deficiency. Continue on vitamin D 5000 units twice a day. 5. History of gastric sleeve. Continue on multivitamin, iron, folic acid, and outpatient followup with primary care provider. 6. Deep vein thrombosis (DVT) prophylaxis per primary team. DISPOSITION: Defer to orthopedic surgery. Await physical therapy (PT) clearance. MTDD
[2019-06-21] MEDS ORDERED: GLUCAGON FOR INJ 1 MG VIAL (J1610) SC PRN (15:30)
[2019-06-21] MEDS ORDERED: GLUCOSE 4 GM CHEW TABLET PO PRN (15:30)
[2019-06-21] MEDS ORDERED: DEXTROSE 50% 50 ML SYRINGE IV PRN (15:30)
[2019-06-21 16:00] VITALS: BP 130/74
[2019-06-21] MEDS: HumaLOG INSULIN (NovoLOG) PER UNIT SC SCH (16:55)
[2019-06-21] MEDS: PERCOCET 5MG/325MG TAB PO PRN ×2 (16:56→23:21)
[2019-06-21 17:00] VITALS: BP 138/80
[2019-06-21] MEDS ORDERED: NON-FORMULARY 1 EA EA SQ SCH (17:30)
[2019-06-21] MEDS: ceFAZolin SOD 2 GM in IV 1 EA IV SCH (18:35)
[2019-06-21 19:00] VITALS: BP 123/82
[2019-06-21] MEDS ORDERED: NON-FORMULARY 1 EA EA PO SCH (21:00)
[2019-06-21] MEDS ORDERED: ATORVASTATIN 10 MG TAB PO SCH (21:00)
[2019-06-21] MEDS ORDERED: HumaLOG INSULIN (NovoLOG) PER UNIT SC SCH (21:00)
[2019-06-21] MEDS: BARIATRIC MULTIVITAMIN PO SCH (21:21)
[2019-06-21] MEDS: VITAMIN D 1,000 INTERNATIONAL UNITS TABLET PO SCH (21:21)
[2019-06-21 22:03] VITALS: BP 126/80
[2019-06-22] MEDS: LR 1,000 ML IV SCH (01:45)
[2019-06-22 02:00] VITALS: BP 123/75
[2019-06-22] MEDS: ceFAZolin SOD 2 GM in IV 1 EA IV SCH ×2 (03:10→10:34)
[2019-06-22 06:00] VITALS: BP 106/64
[2019-06-22] MEDS ORDERED: MIRALAX *UNIT DOSE* 17GM PACKET PO PRN (06:00)
[2019-06-22] MEDS ORDERED: LEVOTHYROXINE 75MCG TABLET (0.075MG) PO SCH (06:00)
[2019-06-22] MEDS: PERCOCET 5MG/325MG TAB PO PRN ×3 (06:05→15:21)
[2019-06-22] MEDS ORDERED: XARE10TA PO (06:57)
[2019-06-22] MEDS ORDERED: PERC5TAB12 PO (06:57)
[2019-06-22] MEDS ORDERED: PERCOCET 5MG/325MG TAB PO PRN (07:00)
[2019-06-22 07:04] LABS: HEMATOCRIT 30.4 % (42.0-52.0); HEMOGLOBIN 10.3 g/dl (13.5-17.5); MEAN CORPUSCULAR HEMOGLOBIN 22.8 pg (27.0-33.0); MEAN CORPUSCULAR HGB CONC 33.9 g/dl (32.0-36.5); MEAN CORPUSCULAR VOLUME 67.3 fl (80.0-96.0); PLATELET COUNT, AUTOMATED 411 10^3/uL (150-450); RED BLOOD COUNT 4.52 10^6/uL (4.30-6.10)
[2019-06-22 07:30] LABS: ALBUMIN 3.3 GM/DL (3.2-5.2); ALT/SGPT 8 U/L (12-78); BILIRUBIN,TOTAL 1.2 MG/DL (0.2-1.0); BLOOD UREA NITROGEN 12 MG/DL (7-18); CALCIUM LEVEL 8.3 MG/DL (8.8-10.2); CARBON DIOXIDE LEVEL 26 MEQ/L (21-32); CHLORIDE LEVEL 102 MEQ/L (98-107); CREATININE FOR GFR 0.66 MG/DL (0.70-1.30); GLOMERULAR FILTRATION RATE > 60.0 (>49); GLUCOSE, FASTING 158 MG/DL (70-100); POTASSIUM SERUM 3.9 MEQ/L (3.5-5.1); SODIUM LEVEL 136 MEQ/L (136-145); TOTAL PROTEIN 6.6 GM/DL (6.4-8.2)
[2019-06-22] MEDS ORDERED: HumaLOG INSULIN (NovoLOG) PER UNIT SC SCH (07:30)
[2019-06-22] MEDS: HumaLOG INSULIN (NovoLOG) PER UNIT SC SCH ×2 (08:03→12:22)
[2019-06-22] MEDS: BARIATRIC MULTIVITAMIN PO SCH (09:00)
[2019-06-22] MEDS ORDERED: FARXIGA 10 MG PO SCH (09:00)
[2019-06-22] MEDS ORDERED: MOM 30ML SUSPENSION UDC PO SCH (09:00)
[2019-06-22] MEDS: VITAMIN D 1,000 INTERNATIONAL UNITS TABLET PO SCH (09:00)
[2019-06-22] MEDS ORDERED: PERCOCET 5MG/325MG TAB PO ONE (09:30)
[2019-06-22] MEDS ORDERED: HYDROMORPHONE HCL 0.5 MG/ 0.5 ML SYRINGE (J1170 PER 1) IV ONE (09:30)
[2019-06-22 09:42] VITALS: BP 120/66
[2019-06-22 09:45] VITALS: BP 120/66
--- NOTE | 2019-06-22 11:57 | IPN ---
DATE OF SERVICE: 06/22/2019 The patient complains of 10/10 pain this morning at the bedside. He says that overnight he did not get much pain relief as he did not know that the medications had to be requested. The patient received pain medications at 4:00 a.m. and last night at around 10 o'clock. He had been in pain all night long. He did receive Percocet this morning, but is not improving after three hours. He has passed a home safety evaluation. Discharge plans today per orthopedic surgery and primary team. Temperature 98.4, pulse 77, respiratory rate 18, blood pressure 120/66, 97% on room air. Generally awake, alert and oriented times three. Answers questions appropriately. Moist mucous membranes. No jugular venous distention (JVD), thyromegaly, cervical lymphadenopathy, or oropharyngeal erythema. Lungs are clear to auscultation. No wheezing, rales or rhonchi. Heart: S1, S2. Sinus rhythm. No murmurs, rubs or gallops. Abdomen: Obese. Soft. Nontender. Nondistended. Positive bowel sounds. Extremities: Right postop knee with some trace edema. Dorsalis pedis and posterior tibialis are 2+. The patient's skin color is pink and warm to touch. LABORATORY DATA: White count 15, hemoglobin 10, hematocrit 30, platelet count 411. Sodium 136, potassium 3.9, chloride 102, bicarbonate 26, BUN 12, creatinine 0.66, glucose 158, calcium 8.3, total bilirubin 1.2, AST 6, ALT 8, alkaline phosphatase 54, and total protein 6.6. Albumin 3.3. IMAGING STUDY: Knee x-ray 06/21/2019 total knee arthroplasty with components lightly applied and in satisfactory position and alignment. Skin melinda are incidentally noted of the right knee. ASSESSMENT AND PLAN: This is a 64-year-old male with history of atrial flutter status post direct current cardioversion with Dr. Fischer, diabetes, hypertension, dyslipidemia, hypothyroidism, ostearthritis and obesity with BMI of 34.5, status post right total knee arthroplasty without perioperative complications. The patient passed a home safety evaluation and may be discharged home today and resumed on his home medications. Deep vein thrombosis (DVT) prophylaxis per primary team. ADORE
[2019-06-22 13:54] VITALS: BP 124/69
[2019-06-22] MEDS ORDERED: RIVAROXABAN 10 MG TAB (XARELTO) PO SCH (18:00)
--- NOTE | 2019-06-24 17:55 | DSES ---
DATE OF ADMISSION: 06/21/2019 DATE OF DISCHARGE: 06/22/2019 ATTENDING PHYSICIAN: Dr. Elie Ray ADMISSION DIAGNOSIS: Osteoarthritis, right knee. OTHER DIAGNOSES: 1. Atrial flutter. 2. Diabetes. 3. Hypertension. 4. Elevated lipids. 5. Hypothyroidism. 6. Chronic ankle pain. 7. Obesity. DISCHARGE DIAGNOSIS: Osteoarthritis, right knee status post right total knee arthroplasty. OPERATION PERFORMED: Right total knee arthroplasty. HISTORY: This is a pleasant 64-year-old male patient with progressively worsening right knee pain and stiffness. He failed to improve with conservative management. He was admitted for elective knee replacement on the right side. HOSPITAL COURSE: The patient was admitted on the day of surgery and underwent a right total knee arthroplasty which was uneventful. He did well in the postoperative period. Hospital course was without complications. He was up with physical therapy per the protocol and his pain was controlled. On the day of discharge, he was weightbearing as tolerated on his right lower extremity. He will move his right knee to prevent stiffness. He will use thromboembolic-deterrent (DONALD) stockings for 30 days postoperatively for deep vein thrombosis (DVT) prophylaxis. He will also use Xarelto 10 mg per the protocol for DVT prophylaxis. He will resume his preoperative medications and diet. He will followup in our office in 10-14 days for surgical followup. Please refer to the medical record for further details.
== END 2019-06-22 15:45 | disposition home or self-care (01) | DRG 302 ==
LOC: M OR 09:12 → M MS5PR 14:15
PROVIDERS: ADMIT Orthopaedic Surgery; ATTEND Orthopaedic Surgery
PROC: 0SRC0J9 Replacement of Right Knee Joint with Synthetic Substitute, Cemented, Open Approach (ICD-10-PCS; principal; 2019-06-21 14:15)
DX: M17.11 Unilateral primary osteoarthritis, right knee (principal); I48.92 Unspecified atrial flutter; I10 Essential (primary) hypertension; E11.9 Type 2 diabetes mellitus without complications; E03.9 Hypothyroidism, unspecified; Z98.84 Bariatric surgery status; Z79.84 Long term (current) use of oral hypoglycemic drugs; Z79.899 Other long term (current) drug therapy; E78.5 Hyperlipidemia, unspecified; E66.9 Obesity, unspecified; Z68.34 Body mass index [BMI] 34.0-34.9, adult; Z96.662 Presence of left artificial ankle joint; Z79.4 Long term (current) use of insulin; E55.9 Vitamin D deficiency, unspecified

== ENCOUNTER → 2019-11-18 | Outpatient (CLI) | payer OTHER ==
[~2019-11-18] MED LIST changes: +ASPI81TA85 PO; +ELIQ2.5T PO; +INSUHUMDS SC; +JARD1TAB3 PO; -LR 1,000 ML IV ONE; +METF-838 PO; +PERC5TAB12 PO; +TRUL10IN SC; +ULTR5TAB MC; -ULTR5TAB PO; +VITAD1000T PO; +XARE10TA PO; -ceFAZolin SOD 1 GM in D5W MINI-BAG PLUS 50 ML IV ONE; -ceFAZolin SOD 2 GM in IV 1 EA IV ONE
[2019-11-18 08:24] LABS: HEMATOCRIT 35.1 % (42.0-52.0); HEMOGLOBIN 11.4 g/dl (13.5-17.5); MEAN CORPUSCULAR HGB CONC 32.5 g/dl (32.0-36.5); MEAN CORPUSCULAR VOLUME 67.6 fl (80.0-96.0); PLATELET COUNT, AUTOMATED 525 10^3/uL (150-450); RED BLOOD COUNT 5.19 10^6/uL (4.30-6.10); WHITE BLOOD COUNT 6.8 10^3/uL (4.0-10.0)
--- NOTE | 2019-11-18 08:34 | REP ---
Chest x-ray: Two views. History: Left knee osteoarthritis. Comparison chest x-ray: June 02, 2019. Findings: The lungs are well inflated and free of infiltrate. Pleural angles are sharp. Heart size is normal. Pulmonary vasculature is not increased. There are mild degenerative changes in the thoracic spine and thoracic aorta unchanged. Impression: No active disease. Electronically Signed by Moshe Stephens MD 11/18/2019 08:25 A
[2019-11-18 08:37] LABS: INR 1.1; PROTHROMBIN TIME 13.9 SECONDS (11.8-14.0)
--- NOTE | 2019-11-18 08:47 | ECGEPIP ---
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
[2019-11-18 08:57] LABS: ALBUMIN 3.7 GM/DL (3.2-5.2); ALT/SGPT 13 U/L (12-78); BILIRUBIN,TOTAL 1.3 MG/DL (0.2-1.0); BLOOD UREA NITROGEN 19 MG/DL (7-18); CALCIUM LEVEL 9.9 MG/DL (8.8-10.2); CARBON DIOXIDE LEVEL 27 MEQ/L (21-32); CHLORIDE LEVEL 107 MEQ/L (98-107); CREATININE FOR GFR 0.67 MG/DL (0.70-1.30); GLOMERULAR FILTRATION RATE > 60.0 (>49); GLUCOSE, FASTING 126 MG/DL (70-100); POTASSIUM SERUM 4.7 MEQ/L (3.5-5.1); SODIUM LEVEL 141 MEQ/L (136-145); TOTAL PROTEIN 7.2 GM/DL (6.4-8.2)
[2019-11-18 09:01] LABS: ERYTHROCYTE SEDIMENTATION RATE 6 mm/hr (0-20)
== END ==
LOC: M LAB 07:47
PROVIDERS: ATTEND Orthopaedic Surgery
DX: Z01.818 Encounter for other preprocedural examination (principal); M17.11 Unilateral primary osteoarthritis, right knee; E11.9 Type 2 diabetes mellitus without complications; E07.9 Disorder of thyroid, unspecified

== ENCOUNTER → 2019-11-21 | Outpatient (CLI) | payer OTHER | LOC: M LABSMTC 10:42 | PROVIDERS: ATTEND Anesthesiology | DX: Z03.818 Encounter for observation for suspected exposure to other biological agents ruled out (principal); Z11.59 Encounter for screening for other viral diseases | CPT/HCPCS: C9803; U0003 ==

== ENCOUNTER 2019-11-24 08:57 | Inpatient (IN) | payer OTHER ==
--- NOTE | 2019-11-18 15:41 | HPE ---
DATE OF ADMISSION: 11/24/2019 ATTENDING PHYSICIAN: Dr. Ray CHIEF COMPLAINT: Left knee pain and stiffness. HISTORY: Patient is a 64-year-old male with progressively worsening left knee pain and stiffness. He failed to improve with conservative measures. He continues to have symptoms with weightbearing activities and activities of daily living. He has consented for an elective left total knee arthroplasty with Dr. Ray for his continued symptoms. Medical optimization completed with Dr. Van and was reviewed today. CURRENT MEDICATIONS: - atorvastatin 10 mg daily - metformin 500 mg twice daily - Tylenol 325 mg every 6 hours as needed - vitamin D 5000 units daily - Trulicity 0.75 mg injections - Humalog 100 U/mL - magnesium 300 mg daily - Jardiance 25 mg daily - bariatric fusion supplement ALLERGIES: There are NO KNOWN DRUG ALLERGIES. CHRONIC MEDICAL CONDITIONS: 1. Type 2 diabetes. 2. Degenerative joint disease. 3. Atopic dermatitis. 4. Hypothyroidism. 5. Vitamin D deficiency. 6. Erectile dysfunction. 7. Hyperlipidemia. 8. Hypertension. PAST SURGICAL HISTORY: 1. Hernia repair. 2. Left-sided rotator cuff surgery. 3. Left ankle open reduction, internal fixation (ORIF). 4. Splenectomy. 5. Heart ablation. 6. Gastric bypass. 7. Right total knee arthroplasty. SOCIAL HISTORY: Patient denies tobacco use and occasionally consumes alcohol. REVIEW OF SYSTEMS: Patient denies fevers, chills, nausea, vomiting, or diarrhea. Denies chest pain, shortness of breath, lightheadedness, dizziness, or headaches. Denies any recent upper respiratory or urinary tract infection symptoms. He continues to have left knee pain with weightbearing activities and activities of daily living. PHYSICAL EXAMINATION: General: Well-nourished, well-developed male in no apparent distress. He is alert, oriented and cooperative. Mood and affect are appropriate. Vital Signs: Height 6 feet 1-1/2 inches, weight 260.8 pounds. Temperature 97 degrees, blood pressure 145/75, heart rate 105, respirations 16. Neck: Supple without lymphadenopathy. Heart: Regular rate and rhythm. Lungs: Clear to auscultation bilaterally. Abdomen is soft and nontender to palpation. Bowel sounds are present. Left knee reveals no gross abnormalities. Skin is intact. There is tenderness along the medial and lateral joint lines. The patient can extend knee to about 5 degrees and flex to 100 degrees. Left lower extremity strength is 5/5. No hip irritability was elicited with range of motion testing. The patient's calf is soft and nontender to palpation. No evidence of deep venous thrombosis (DVT). He is neurovascularly intact distally. LABORATORY DATA: EKG: Sinus rhythm with poor R wave progression, S waves in V5 and V6 could be pulmonary disease versus body habitus. Inferior Q waves. ST-T wave abnormalities. No change from prior tracing. IMPRESSION: Left knee degenerative arthritis. PLAN: Patient has consented for an elective left total knee arthroplasty with Dr. Ray for his continued symptoms. Medical optimization completed with Dr. Van. The patient will be nothing by mouth after midnight the night prior to surgery with the exception of any medications his primary restorative care technician told him to take the morning of surgery with a small sip of water. He will call [facility] the day prior to surgery to get a report time. The patient will start using his Hibiclens and Bactroban as directed. He will follow his primary restorative care technician's recommendations on how to take his daily medications.
[~2019-11-24] VITALS: Ht 190.5 cm; Wt 119.3 kg
[~2019-11-24 08:57] MED LIST changes: -ASPI81TA85 PO; -ELIQ2.5T PO; +LR 1,000 ML IV ONE
[2019-11-24] MEDS ORDERED: ATORVASTATIN 5MG PER 1/2 TABLET PO SCH (09:00)
[2019-11-24] MEDS ORDERED: ceFAZolin SOD 2 GM in IV 1 EA IV ONE (09:30)
[2019-11-24] MEDS ORDERED: ACETAMINOPHEN 500 MG TAB PO ONE (09:30)
[2019-11-24] MEDS ORDERED: TRANEXAMIC ACID 100 MG/ML 10ML VIAL As Ordered ONE (10:40)
[2019-11-24] MEDS ORDERED: BUPIVACAINE HCL 0.25% 10ML VIAL As Ordered ONE (10:40)
[2019-11-24] MEDS ORDERED: BUPIVACAINE LIPOSOME/PF 1.3% 20ML VIAL (13.3MG/ML)(EXPAREL)(C9290 PER1MG) As Ordered ONE (10:41)
[2019-11-24] MEDS ORDERED: ceFAZolin 1GM VIAL (J0690 PER 500MG) As Ordered ONE (10:41)
[2019-11-24] MEDS ORDERED: EPINEPHrine INJ 1 MG/ML 1ML AMP As Ordered ONE (10:41)
[2019-11-24] MEDS ORDERED: LIDOCAINE 2% 100MG/5ML SDV (FOR ANES.) As Ordered ONE (10:47)
[2019-11-24] MEDS ORDERED: MIDAZOLAM INJ 2MG/2ML VIAL (J2250 PER 1MG) As Ordered ONE ×2 (10:47→11:04)
[2019-11-24] MEDS ORDERED: ACETAMINOPHEN 1000MG 100ML IV BTL (OFIRMEV) (J0131 PER 10MG) As Ordered ONE (10:47)
[2019-11-24] MEDS ORDERED: propofoL 500 MG/50 ML VIAL As Ordered ONE (10:47)
[2019-11-24] MEDS ORDERED: fentaNYL 100 MCG/2 ML INJECTION (J3010) As Ordered ONE (11:04)
[2019-11-24] MEDS: MIDAZOLAM INJ 2MG/2ML VIAL (J2250 PER 1MG) IV SCH ×2 (11:16→11:23)
[2019-11-24] MEDS: fentaNYL 100 MCG/2 ML INJECTION (J3010) IV SCH ×2 (11:16→11:23)
--- NOTE | 2019-11-24 12:48 | HPEPDOC ---
General Date of Admission Nov 24, 2019 at 08:57 Date of Service: Nov 24, 2019 Chief Complaint The patient is a 64-year-old male admitted with a reason for visit of Left Knee Osteoarthritis. History of Present Illness CONSULTATION REPORT; CONSULT REQUESTED BY ORTHOPEDICS CONSULTATION FOR THE MANAGEMENT OF MEDICAL COMORBIDITIES HPI; 64 YEAR OLD MALE WITH PMH OF DIABETES, HYPERTENSION, AFIB S/P ABLATION, MOR BID OBESITY S/P GASTRIC BYPASS ADMITTED FOR ELECTIVE LEFT TOTAL KNEE REPLACEMENT FOR ADVANCED OA WITH SYMPTOMS NOT CONTROLLED WITH MEDICAL MANAGEMENT. HOSPITALIST IS CONSULTED FOR THE MANAGEMENT OF MEDICAL COMORBIDITIES. PATIENT IS SEEN IN PACU GETTING READY TO GO INTO OR. HE JUST GOT HIS BLOCK. HE DENIED ANY COMPLAINTS AT THIS TIME. Home Medications Scheduled Atorvastatin Calcium (Atorvastatin Calcium) 20 Mg Tablet, 5 MG PO DAILY, (Reported) Biotin (Biotin) 5,000 Mcg Tab.rapdis, 5,000 MCG MC BID, (Reported) Cholecalciferol (Vitamin D3) (Vitamin D3) 1,000 Unit Tablet, 5,000 UNITS PO BID, (Reported) Dulaglutide (Trulicity) 0.75 Mg/0.5 Ml Pen.injctr, 0.75 MG SC QWEEK, (Reported) Empagliflozin (Jardiance) 25 Mg Tablet, 25 MG PO DAILY, (Reported) Metformin HCl (Metformin HCl ER) 500 Mg Tab.er.24h, 2,000 MG PO DAILY, (Reported) Multivit-Min/Iron/Folic Acid/K (Bariatric Mv-Iron 45 mg Cap) 1 Each Capsule, 2 EACH PO BID, (Reported) Scheduled PRN Acetaminophen (Tylenol Extra Strength) 500 Mg Tablet, 500 MG PO BIDP PRN for PAIN, (Reported) Hydrocodone/Acetaminophen (Hydrocodone-Acetamin 5-325 mg) 1 Each Tablet, 1 TAB PO QHSP PRN for PAIN, (Reported) MDD 4 Allergies Coded Allergies: No Known Allergies (Unverified , 11/24/19) Past Medical History Medical History TYPE 2 DIABETES H/o ATRIAL FIBRILLATION S/P Ablation HYPERTENSION HYPERCHOLESTEROLEMIA OBESITY 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 Atopic dermatitis. Hypothyroidism. Vitamin D deficiency. Erectile dysfunction. Surgical History LEFT ANKLE [id number] LEFT SHOULDER ROTATOR CUFF SURGERY06/16/1998 SPLENECTOMY 08/11/2008 ABDOMINAL HERNIA REPAIR 09/18/2016 RIGHT FOOT/ANKLE REPAIR 08/15/2017 HEART ABLATION 09/22/2017 RIGHT TOTAL KNEE ARTHROPLASTY GASTRIC BYPASS Family History FATHER: , DIAGNOSED WITH HEART DISEASE MOTHER: , LUNG CANCER PATERNAL GRAND FATHER: , OTHER MALIGNANT NEOPLASM UNSPECIFIED SISTER: LEUKEMIA MATERNAL GRAND MOTHER: , HEART DISEASE, OTHER MALIGNANT NEOPLASM OF UNSPECIFIED SITE Social History * Smoker: non-smoker Alcohol: rarely Drugs: denies A-FIB/CHADSVASC A-FIB History Current/History of A-Fib/PAF?: Yes Current PO Anticoag Therapy: No Review of Systems Constitutional: Denies: Chills, Fever, Night Sweats Eyes: Denies: Pain, Vision change ENT: Denies: Head Aches, Ear Pain, Dysphagia Skin: Denies: Rash, Lesions, Breakdown Pulmonary: Denies: Dyspnea, Cough Cardiovascular: Denies: Chest Pain, Palpitations, Orthopnea, Paroxysmal Noc. Dyspnea, Lt Headedness Gastrointestinal: Denies: Nausea, Vomiting, Abdominal Pain, Diarrhea Genitourinary: Denies: Dysuria, Frequency, Incontinence, Retention Hematologic: Denies: Bruising, Bleeding Excessively Musculoskeletal: Denies: Neck Pain, Back Pain, Joint Pain, Muscle Pain, Spasms Physical Examination General Exam: Positive: Alert, Cooperative, No Acute Distress Eye Exam: Positive: PERRLA, Conjunctiva & lids normal, EOMI; Negative: Sclera icteric ENT Exam: Positive: Atraumatic, Mucous membr. moist/pink, Pharynx Normal Neck Exam: Positive: Supple; Negative: JVD, thyromegaly Chest Exam: Positive: Clear to auscultation, Normal air movement Heart Exam: Positive: Rate Normal, Regular Rhythm, Normal S1, Normal S2; Negative: Murmurs, Rubs Telemetry: Positive: No significant arrhythmia Abdomen Exam: Positive: Normal bowel sounds, Soft; Negative: Tenderness, Hepatospenomegaly Extremity Exam: Positive: Normal pulses; Negative: Clubbing, Cyanosis, Edema Skin Exam: Positive: Nl turgor and temperature; Negative: Breakdown, Lesion Vital Signs Vital Signs Date Time Temp Pulse Resp B/P (MAP) Pulse Ox O2 Delivery O2 Flow Rate FiO2 11/24/19 11:30 116/74 (88) 11/24/19 11:25 78 16 95 Nasal Cannula 2 11/24/19 09:40 98.4 Laboratory Data Labs 24H Laboratory Tests 2 11/24/19 09:43: Bedside Glucose (Misc Panel) 130H Assessment/Plan Left knee advanced OA going for left total knee arthroplasty post operative pain control and dvt prophylaxis as per orthopedics. Diabetes hold trulicity, jardiace, metformin will give lispro sliding scale when eating after surgery Hypertension no on any meds at present will continue to monitor hyperlipidemia statin Afib s/p ablation ow in sinus rhythm. Plan / VTE VTE Prophylaxis Ordered?: Yes JOSEPH HANKS MD Nov 24, 2019 12:48
[2019-11-24] MEDS ORDERED: DEXTROSE 50% 50 ML SYRINGE IV PRN (13:00)
[2019-11-24] MEDS ORDERED: GLUCOSE 4GM CHEW TABLET PO PRN (13:00)
[2019-11-24] MEDS ORDERED: GLUCAGON INJ 1MG VIAL SC PRN (13:00)
[2019-11-24] MEDS ORDERED: propofoL 200 MG/20 ML VIAL As Ordered ONE ×5 (13:31→14:25)
[2019-11-24] MEDS ORDERED: ONDANSETRON 4MG/2ML VIAL As Ordered ONE (15:16)
[2019-11-24] MEDS ORDERED: MEPERIDINE INJ 25 MG/ML VIAL (J2175) As Ordered ONE (15:17)
[2019-11-24] MEDS ORDERED: oxyCODONE 5MG TAB As Ordered ONE (15:17)
[2019-11-24] MEDS: oxyCODONE 5MG TAB PO PRN ×2 (15:20→15:50)
[2019-11-24] MEDS: MEPERIDINE INJ 25 MG/ML VIAL (J2175) IV PRN ×2 (15:20→15:25)
[2019-11-24] MEDS: fentaNYL 100 MCG/2 ML INJECTION (J3010) IV PRN ×4 (15:20→15:35)
[2019-11-24] MEDS ORDERED: METOCLOPRAMIDE INJ 10MG/2ML VIAL (J2765 PER 1) IV PRN (15:30)
[2019-11-24] MEDS ORDERED: PERCOCET 5MG/325MG TAB PO PRN ×3 (15:30→22:30)
[2019-11-24] MEDS ORDERED: ACETAMINOPHEN TAB 650MG DOSE (2X325MG) PO PRN (15:30)
[2019-11-24] MEDS ORDERED: ONDANSETRON 4MG/2ML VIAL IV PRN ×2 (15:30)
[2019-11-24] MEDS ORDERED: LR 1,000 ML IV SCH ×2 (15:30)
[2019-11-24] MEDS ORDERED: MORPHINE 2 MG/ML 1ML VIAL (J2270) IV PRN (15:30)
[2019-11-24 16:30] VITALS: BP 124/79
[2019-11-24 17:00] VITALS: BP 125/79
[2019-11-24] MEDS: HumaLOG INSULIN (NovoLOG) PER UNIT SC SCH (17:57)
[2019-11-24 18:00] VITALS: BP 128/79
[2019-11-24] MEDS ORDERED: PILL CUTTER 1 EACH XX PRN (18:15)
[2019-11-24] MEDS: ATORVASTATIN 10 MG TAB PO SCH (18:42)
[2019-11-24 19:00] VITALS: BP 124/79
[2019-11-24] MEDS ORDERED: EPINEPHrine INJ 1 MG/ML 1ML AMP ONE ×2 (19:20→19:23)
[2019-11-24] MEDS ORDERED: dexameTHASONE 10MG/1ML VIAL PRES.FREE (J1100 PER 1MG) ONE ×2 (19:20→19:23)
[2019-11-24] MEDS ORDERED: ROPIvacaine 0.5% 30ML INJECTION (J2795 PER 1MG) ONE ×2 (19:20→19:23)
[2019-11-24 19:59] VITALS: BP 122/78
[2019-11-24] MEDS: ASPIRIN 81 MG ENTERIC TAB PO SCH (20:06)
[2019-11-24] MEDS: ceFAZolin SOD 2 GM in IV 1 EA IV SCH (20:06)
[2019-11-24 21:00] VITALS: BP 125/80
[2019-11-24] MEDS ORDERED: HumaLOG INSULIN (NovoLOG) PER UNIT SC SCH (21:00)
[2019-11-25] MEDS: PERCOCET 5MG/325MG TAB PO PRN ×4 (00:34→13:32)
[2019-11-25 01:49] VITALS: BP 119/75
--- NOTE | 2019-11-25 02:14 | REP ---
LEFT KNEE, TWO VIEWS: Two views of left knee performed. Total knee prosthesis is in place and appears to be in good position. Osseous structures are intact and well aligned. Metallic skin melinda are seen anteriorly. Electronically Signed by Omer Ko MD 11/25/2019 09:42 A
[2019-11-25] MEDS: ceFAZolin SOD 2 GM in IV 1 EA IV SCH ×2 (05:05→12:25)
[2019-11-25 05:40] VITALS: BP 120/76
[2019-11-25] MEDS ORDERED: ASPI81TA85 PO (06:51)
[2019-11-25] MEDS ORDERED: PERC5TAB12 PO (06:51)
[2019-11-25 07:05] LABS: HEMOGLOBIN 11.1 g/dl (13.5-17.5); MEAN CORPUSCULAR HEMOGLOBIN 21.9 pg (27.0-33.0); MEAN CORPUSCULAR HGB CONC 32.6 g/dl (32.0-36.5); MEAN CORPUSCULAR VOLUME 66.9 fl (80.0-96.0); PLATELET COUNT, AUTOMATED 443 10^3/uL (150-450); RED BLOOD COUNT 5.08 10^6/uL (4.30-6.10)
[2019-11-25 07:29] LABS: ALBUMIN 3.7 GM/DL (3.2-5.2); ALT/SGPT 12 U/L (12-78); BILIRUBIN,TOTAL 1.4 MG/DL (0.2-1.0); BLOOD UREA NITROGEN 15 MG/DL (7-18); CARBON DIOXIDE LEVEL 25 MEQ/L (21-32); CHLORIDE LEVEL 100 MEQ/L (98-107); CREATININE FOR GFR 0.76 MG/DL (0.70-1.30); GLOMERULAR FILTRATION RATE > 60.0 (>49); GLUCOSE, FASTING 132 MG/DL (70-100); POTASSIUM SERUM 4.1 MEQ/L (3.5-5.1); SODIUM LEVEL 134 MEQ/L (136-145); TOTAL PROTEIN 7.2 GM/DL (6.4-8.2)
[2019-11-25] MEDS: HumaLOG INSULIN (NovoLOG) PER UNIT SC SCH ×2 (08:21→12:26)
[2019-11-25] MEDS: ATORVASTATIN 10 MG TAB PO SCH (08:22)
[2019-11-25] MEDS ORDERED: MOM 30ML SUSPENSION UDC PO SCH (09:00)
[2019-11-25] MEDS ORDERED: APIXABAN 2.5 MG TAB (ELIQUIS) PO SCH (09:00)
[2019-11-25] MEDS ORDERED: MIRALAX *UNIT DOSE* 17GM PACKET PO SCH (09:00)
[2019-11-25 10:00] VITALS: BP 121/75
[2019-11-25] MEDS ORDERED: ELIQ2.5T PO (10:53)
[2019-11-25] MEDS: ASPIRIN 81 MG ENTERIC TAB PO SCH (10:53)
--- NOTE | 2019-11-29 18:15 | DSES ---
DATE OF ADMISSION: 11/24/2019 DATE OF DISCHARGE: 11/25/2019 HISTORY OF PRESENT ILLNESS: This is a pleasant 64-year-old male with progressively worsening left knee arthritis. He consented for a left total knee arthroplasty per Dr. Elie Ray. Medical optimization completed with Dr. Van. OPERATION PERFORMED: Left total knee arthroplasty. HOSPITAL COURSE: The patient underwent left total knee arthroplasty under spinal and MAC anesthesia, well tolerated and returned to recovery comfortable. Our hospital team felt the patient was ready for discharge on 11/25/2019 with the following instructions. Weightbearing as tolerated with walker, diet is regular, Percocet as needed for pain, Optifoam dressing change in 3-4 days time, DONALD stockings times 30 days with anticoagulation per protocol. Followup at orthopedic group 12-14 days for wound check, potential staple removal. The patient is encouraged to contact our office sooner with increased pain, numbness, tingling, drainage, bleeding, fever greater than 101 or further concerns. INDICATION Hydrated.
--- NOTE | 2019-12-01 12:49 | RO ---
DATE OF PROCEDURE: 11/24/2019 PREOPERATIVE DIAGNOSIS: Left knee degenerative arthritis. POSTOPERATIVE DIAGNOSIS: Left knee degenerative arthritis. PROCEDURE: Left total knee arthroplasty using a size 7 cemented posterior cruciate-retaining femoral component with a size 7 tibial tray and a 7-mm rotating-platform polyethylene insert and a 38-mm polyethylene button. The prosthesis was made by [employer]. All the components were cemented. It was an Attune knee. SURGEON: Estefani Ray MD ZINC SKIMMER: Elena Quintana PA-C ANESTHESIA: Spinal with left femoral nerve block. COMPLICATIONS: None. ESTIMATED BLOOD LOSS: 20 mL. SPECIMENS: Joint surface. DESCRIPTION OF PROCEDURE: Antibiotics were given intravenously preoperatively and a successful left femoral nerve block and then a spinal anesthetic was induced. The tourniquet was placed on the left upper thigh and not inflated. The left lower extremity was carefully prepped and draped in the usual sterile fashion. Then, the leg was elevated. Then, after appropriate time-out, the tourniquet was inflated, and then a longitudinal incision was made for a medial parapatellar approach to the knee. Bovie cautery was used to coagulate crossing vessels. Medial parapatellar arthrotomy was performed. Subperiosteal dissection around the proximal medial tibia and the proximal lateral tibia was performed, and the patella was everted and the knee flexed. The anterior cruciate ligament (ACL) was debrided. The drill was placed down the center of the femoral canal, followed by the intramedullary morteza, and the distal femoral cutting jig set at 9-mm resection level at 5-degree valgus cut for a left knee. The jig was pinned into position, distal cut performed, AP sizing jig measured for a size 7. 3 degrees of external rotation were dialed in, and then the pins were placed, and then the 4-in-1 block applied. The anterior and posterior cuts were performed, taking great care to protect the soft tissues. The jig for the sulcus osteotomy was then applied and the sulcus osteotomy performed. We then exposed the proximal tibia, and extramedullary jig was used to estimate being parallel to the mechanical axis of the tibia, referencing off the medial tibial condyle at 4-mm resection level. The jig was pinned into position, and a secondary check with the extramedullary morteza confirmed we appeared to be parallel to the mechanical axis. A proximal tibial osteotomy was thus performed. We then placed the lamina burlapper laterally and performed a completion of medial meniscectomy, debriding the posterior and medial osteophytes. We then placed the lamina burlapper medially and performed a completion of lateral meniscectomy debriding the posterior and lateral osteophytes. The spacer block at 7 mm showed good symmetry in both the flexion space and the extension space with good stability to varus and valgus stress testing. We did trial the 6, but the 7 fit best. We then exposed the proximal tibia, sized for a #8 tibial tray, which was pinned into position, followed by the reamer and broach. Then, the trial 7 mm was placed, followed by the trial femoral component, brought the knee into extension, everted the patella, and performed a patellar osteotomy, sized for a 38 button. The lug holes were drilled. The trial was applied, and the patellofemoral tracking was anatomic. We thus drilled the lug holes for the femur and removed all the trial components, and then placed Exparel in the subperiosteal tissues around the distal femur and the proximal tibia, and then copiously pulsatile lavage irrigated out the knee joint and prepared the bony surfaces for cementing. I did this as my therapeutic recreation assistant, Ms. Grazyna Quintana, mixed the cement on the back table. She was also critical to the success of this difficult procedure by helping me to manipulate the knee, helped to prepare the patient, helped to close the wound, helped to apply appropriate soft tissue retraction, helped to mix the cement, amongst many other tasks to allow me to perform the operation smoothly, efficiently, and safely. Once all the bony surfaces were thoroughly debrided and dried and all excess debris was removed, we cemented the tibial tray, removing excess cement, and placed the polyethylene, cemented the femoral component, removed excess cement, brought the knee into extension, cemented the patellar button, and removed excess cement, and then held it with a clamp with the knee in full extension as we were waiting for the cement to harden. While we were awaiting this, we copiously pulsatile lavage irrigated out the knee joint and then instilled tranexamic acid and then began closing the apex of the arthrotomy with interrupted #1 polydioxanone suture (PDS) sutures and the medial parapatellar area was used, as well, and then we closed the capsule with a running #1 double-arm Stratafix. The tourniquet was then released, and then we irrigated again and closed the deep subdermal tissues with interrupted #2 PDS sutures. The skin was closed with melinda, covered by an Optifoam and a dry sterile bulky dressing. She was then transferred to the recovery room in stable condition. There were no intraoperative complications.
== END 2019-11-25 14:01 | disposition home or self-care (01) | DRG 302 ==
LOC: M OR 08:57 → M MS5PR 16:35
PROVIDERS: ADMIT Orthopaedic Surgery; ATTEND Orthopaedic Surgery
PROC: 0SRD0J9 Replacement of Left Knee Joint with Synthetic Substitute, Cemented, Open Approach (ICD-10-PCS; principal; 2019-11-24 12:45)
DX: M17.12 Unilateral primary osteoarthritis, left knee (principal); I11.9 Hypertensive heart disease without heart failure; E11.9 Type 2 diabetes mellitus without complications; E03.9 Hypothyroidism, unspecified; E55.9 Vitamin D deficiency, unspecified; N52.9 Male erectile dysfunction, unspecified; E78.5 Hyperlipidemia, unspecified; L20.9 Atopic dermatitis, unspecified; E78.00 Pure hypercholesterolemia, unspecified; Z79.4 Long term (current) use of insulin; Z79.899 Other long term (current) drug therapy; Z98.84 Bariatric surgery status; Z96.651 Presence of right artificial knee joint

== ENCOUNTER → 2020-04-25 | Outpatient (CLI) | payer OTHER, SELFPAY ==
[~2020-04-25] MED LIST changes: +ACET650T61 PO; +ASPI81TA86 PO; +D31000TA2 PO; +ELIQ2.5T PO; -LISI20TA19 PO; +LISI20TA35 PO; -LR 1,000 ML IV ONE; -TYLE650T35 PO; -VITAD1000T PO
== END ==
LOC: M LABSMTC 13:47
PROVIDERS: ATTEND Pediatrics
DX: Z11.59 Encounter for screening for other viral diseases (principal)

== ENCOUNTER → 2020-07-05 | Outpatient (CLI) | payer OTHER ==
--- NOTE | 2020-07-05 08:50 | REP ---
INDICATION: INCISIONAL HERNIA W/O OBST COMPARISON: 11/09/2015 TECHNIQUE: Axial noncontrast images from the lung bases to the pubic symphysis with coronal and sagittal reformations. This CT examination was performed using the following dose reduction techniques: Automated exposure control, adjustment of mA and/or kv according to the patient's size, and use of iterative reconstruction technique. FINDINGS: Lung bases are essentially clear. Visualized heart and pericardium normal. Liver is unremarkable by noncontrast evaluation. Gallbladder, pancreas, bilateral adrenal glands and kidneys are relatively normal for noncontrast examination. Stable 1.5 cm left renal cyst noted. Evidence for prior splenectomy with multiple splenules in the left upper quadrant. Evidence for prior gastric bypass surgery noted. Moderate fecal stasis is appreciated throughout the colon along with scattered colonic and sigmoid diverticula. No acute bowel obstruction or acute inflammatory process. Normal terminal ileum and appendix are identified in the right lower quadrant. There is evidence for prior midline ventral hernia repair with very subtle laxity but no evidence for recurrent hernia. Pelvis demonstrates normal bladder and age-appropriate prostate/seminal vesicles. No ascites. No free air. No adenopathy. No focal inflammatory stranding. Abdominal aorta without aneurysm. Musculoskeletal structures demonstrate age-related degenerative changes without acute osseous abnormality. IMPRESSION: 1. Moderate fecal stasis and scattered sigmoid diverticula without acute enteric process. 2. Subtle laxity/eventration along the anterior abdominal wall at the site of prior ventral hernia repair without evidence for acute hernia. 3. Nonacute chronic findings as above. <Electronically signed by Darius Davalos > 07/05/20 [id number]
== END ==
LOC: M RAD 07:25
PROVIDERS: ATTEND Surgery
DX: K43.2 Incisional hernia without obstruction or gangrene (principal)

== ENCOUNTER → 2020-07-28 | Outpatient (CLI) | payer SELFPAY ==
[~2020-07-28] MED LIST changes: +ASPI-569 PO; -ASPI81TAEC PO
== END ==
LOC: M LABSMTC 10:47
PROVIDERS: ATTEND Pediatrics
DX: Z11.52 Encounter for screening for COVID-19 (principal)

== ENCOUNTER → 2020-12-20 | Outpatient (CLI) | payer OTHER ==
[~2020-12-20] MED LIST changes: +ALPH600C PO; +ATOR1TAB19; +FARX1TAB3; +LEVO25TA5; +TIZA2TA; -ULTR5TAB MC; +ULTR5TAB PO
[2020-12-20 13:23] LABS: BASO # 0.2 10^3/uL (0.0-0.2); BASO % 1.6 % (0.0-1.0); EOS # 0.3 10^3/uL (0.0-0.5); EOS % 2.7 % (0.0-3.0); HEMOGLOBIN 11.7 g/dl (13.5-17.5); LYMPH # 4.9 10^3/uL (1.5-5.0); LYMPH % 52.7 % (24.0-44.0); MEAN CORPUSCULAR HEMOGLOBIN 22.3 pg (27.0-33.0); MEAN CORPUSCULAR HGB CONC 32.5 g/dl (32.0-36.5); MEAN CORPUSCULAR VOLUME 68.6 fl (80.0-96.0); MONO # 0.8 10^3/uL (0.0-0.8); MONO % 8.4 % (2.0-8.0); NEUTROPHILS # 3.2 10^3/uL (1.5-8.5); NEUTROPHILS % 34.4 % (36.0-66.0); PLATELET COUNT, AUTOMATED 462 10^3/uL (150-450); RED BLOOD COUNT 5.25 10^6/uL (4.30-6.10); WHITE BLOOD COUNT 9.2 10^3/uL (4.0-10.0)
[2020-12-20 13:48] LABS: ALT/SGPT 14 U/L (12-78); BILIRUBIN,TOTAL 1.2 MG/DL (0.2-1.0); BLOOD UREA NITROGEN 17 MG/DL (7-18); CALCIUM LEVEL 9.4 MG/DL (8.8-10.2); CARBON DIOXIDE LEVEL 28 MEQ/L (21-32); CHLORIDE LEVEL 106 MEQ/L (98-107); CREATININE FOR GFR 0.63 MG/DL (0.70-1.30); GLOMERULAR FILTRATION RATE > 60.0 (>49); GLUCOSE, FASTING 114 MG/DL (70-100); POTASSIUM SERUM 4.3 MEQ/L (3.5-5.1); SODIUM LEVEL 139 MEQ/L (136-145); TOTAL PROTEIN 7.1 GM/DL (6.4-8.2)
== END ==
LOC: M LAB 12:48
PROVIDERS: ATTEND Nurse Practitioner Family
DX: Z01.818 Encounter for other preprocedural examination (principal)

== ENCOUNTER → 2020-12-29 | Outpatient (CLI) | payer OTHER | LOC: M LABSMTC 09:45 | PROVIDERS: ATTEND Anesthesiology | DX: Z01.812 Encounter for preprocedural laboratory examination (principal); Z20.822 Contact with and (suspected) exposure to COVID-19 ==

== ENCOUNTER 2021-01-03 06:04 | Inpatient (IN) | payer OTHER ==
[2021-01-03] VITALS (8 sets, daily range): BP systolic 133–136; BP diastolic 80–87
[~2021-01-03] VITALS: Ht 190.5 cm; Wt 124.7 kg
[~2021-01-03 06:04] MED LIST changes: +ALVIMOPAN 12 MG CAPSULE (ENTEREG) PO ONE; +CelecoXIB 400 MG CAP PO ONE; +HEPARIN SOD (PORCINE) 5000UNITS/ML 1ML VIAL/SYRINGE SQ ONE; +LR 1,000 ML IV ONE; +ceFAZolin SOD 2 GM in IV 1 EA IV ONE
[2021-01-03] MEDS ORDERED: ONDANSETRON 4MG/2ML VIAL As Ordered ONE (06:44)
[2021-01-03] MEDS ORDERED: MIDAZOLAM INJ 2MG/2ML VIAL (J2250 PER 1MG) As Ordered ONE (06:44)
[2021-01-03] MEDS ORDERED: ROCURONIUM BROMIDE 50 MG/5 ML VIAL As Ordered ONE ×5 (06:44→12:54)
[2021-01-03] MEDS ORDERED: propofoL 200 MG/20 ML VIAL As Ordered ONE ×2 (06:44→07:51)
[2021-01-03] MEDS ORDERED: LIDOCAINE 2% 100MG/5ML SDV (FOR ANES.) As Ordered ONE (06:44)
[2021-01-03] MEDS ORDERED: fentaNYL 100 MCG/2 ML INJECTION (J3010) As Ordered ONE (06:45)
[2021-01-03] MEDS ORDERED: BUPIVACAINE HCL 0.25% 30ML VIAL As Ordered ONE (07:18)
[2021-01-03] MEDS ORDERED: BUPIVACAINE HCL 0.25% 10ML VIAL As Ordered ONE (07:18)
[2021-01-03] MEDS ORDERED: LIDOCAINE 1% SDV 30ML VIAL As Ordered ONE (07:18)
[2021-01-03] MEDS ORDERED: BUPIVACAINE LIPOSOME/PF 1.3% 20ML VIAL (13.3MG/ML)(EXPAREL)(C9290 PER1MG) As Ordered ONE (07:19)
[2021-01-03] MEDS ORDERED: ceFAZolin 1GM VIAL (J0690 PER 500MG) As Ordered ONE ×3 (07:49→14:48)
[2021-01-03] MEDS ORDERED: KETOROLAC 60MG 2ML VIAL As Ordered ONE (08:24)
[2021-01-03] MEDS ORDERED: ACETAMINOPHEN 1000MG 100ML IV BTL (OFIRMEV) (J0131 PER 10MG) As Ordered ONE (08:24)
[2021-01-03] MEDS ORDERED: METOPROLOL 5 MG/5 ML VIAL As Ordered ONE ×3 (08:32→12:53)
[2021-01-03] MEDS ORDERED: HYDROmorphone HCL 2 MG/ML 1ML VIAL (J1170) As Ordered ONE ×2 (08:33→13:51)
[2021-01-03] MEDS ORDERED: ePHEDrine SULFATE 25 MG/5 ML(5MG/ML) SYRINGE As Ordered ONE (08:44)
[2021-01-03] MEDS ORDERED: SUGAMMADEX SODIUM 500 MG/5 ML VIAL (BRIDION) As Ordered ONE (15:31)
[2021-01-03] MEDS ORDERED: ESMOLOL INJ 100MG/10ML VIAL As Ordered ONE (15:59)
[2021-01-03] MEDS ORDERED: ACETAMINOPHEN TAB 650MG DOSE (2X325MG) PO PRN (16:25)
[2021-01-03] MEDS ORDERED: GLUCAGON INJ 1MG VIAL SC PRN (16:25)
[2021-01-03] MEDS ORDERED: GLUCOSE 4GM CHEW TABLET PO PRN (16:25)
[2021-01-03] MEDS ORDERED: MORPHINE 4 MG/ML 1ML VIAL/SYRINGE (J2270) IV PRN (16:25)
[2021-01-03] MEDS ORDERED: MOM 30ML SUSPENSION UDC PO PRN (16:25)
[2021-01-03] MEDS ORDERED: DEXTROSE 50% 50 ML SYRINGE IV PRN (16:25)
[2021-01-03] MEDS ORDERED: ONDANSETRON 4MG/2ML VIAL IV PRN (16:45)
[2021-01-03] MEDS ORDERED: HYDROMORPHONE HCL 0.5 MG/ 0.5 ML SYRINGE (J1170 PER 1) IV PRN (16:45)
[2021-01-03] MEDS ORDERED: LR 1,000 ML IV SCH (16:45)
[2021-01-03] MEDS ORDERED: fentaNYL 100 MCG/2 ML INJECTION (J3010) IV PRN (16:45)
[2021-01-03] MEDS ORDERED: MEPERIDINE INJ 25 MG/ML VIAL (J2175) IV PRN (16:45)
[2021-01-03] MEDS: LR 1,000 ML IV SCH (18:10)
[2021-01-03] MEDS: KETOROLAC 30 MG/ML 1ML VIAL IV SCH ×2 (18:16→23:59)
[2021-01-03] MEDS: HumaLOG INSULIN (NovoLOG) PER UNIT SC SCH (20:52)
[2021-01-03] MEDS: SENOKOT S TAB PO SCH (20:53)
[2021-01-03] MEDS: ONDANSETRON 4MG/2ML VIAL IV PRN (20:56)
[2021-01-03] MEDS: PERCOCET 5MG/325MG TAB PO PRN (20:56)
[2021-01-04 02:20] VITALS: BP 124/74
[2021-01-04] MEDS: LR 1,000 ML IV SCH (02:45)
[2021-01-04] MEDS: ONDANSETRON 4MG/2ML VIAL IV PRN (03:37)
[2021-01-04] MEDS: PERCOCET 5MG/325MG TAB PO PRN ×3 (03:38→20:56)
[2021-01-04 06:00] VITALS: BP 129/68
[2021-01-04] MEDS: KETOROLAC 30 MG/ML 1ML VIAL IV SCH ×4 (06:02→23:09)
[2021-01-04 06:50] LABS: BASO # 0.1 10^3/uL (0.0-0.2); BASO % 0.5 % (0.0-1.0); EOS # 0.2 10^3/uL (0.0-0.5); EOS % 1.6 % (0.0-3.0); HEMATOCRIT 30.8 % (42.0-52.0); HEMOGLOBIN 10.2 g/dl (13.5-17.5); LYMPH # 2.9 10^3/uL (1.5-5.0); LYMPH % 22.3 % (24.0-44.0); MEAN CORPUSCULAR HEMOGLOBIN 22.7 pg (27.0-33.0); MEAN CORPUSCULAR HGB CONC 33.1 g/dl (32.0-36.5); MEAN CORPUSCULAR VOLUME 68.6 fl (80.0-96.0); MONO # 1.7 10^3/uL (0.0-0.8); MONO % 12.9 % (2.0-8.0); NEUTROPHILS # 8.1 10^3/uL (1.5-8.5); NEUTROPHILS % 62.5 % (36.0-66.0); PLATELET COUNT, AUTOMATED 356 10^3/uL (150-450); RED BLOOD COUNT 4.49 10^6/uL (4.30-6.10)
--- NOTE | 2021-01-04 07:07 | ROOPDOC ---
[facility] Report Of Operation Report of Operation DATE OF PROCEDURE: 01/03/21 PREPROCEDURE DIAGNOSES: multiple,complex midline incisional hernia, diastases, recurrent. POSTPROCEDURE DIAGNOSES: same. PROCEDURE PERFORMED: Robotic assisted laparoscopic eTEP access, [place] Stoppa repair and bilateral transversus abdominis release. SURGEON: Silver Issa MD SLIDE MAKER: Cynthia Betts NP ANESTHESIA: General Endotracheal Anesthesia ESTIMATED BLOOD LOSS: Approximately 100 mL. COMPLICATIONS: none. REMARKS: Patient is 66 M with remote history of traumatic laparotomy from a work site incident requiring splenectomy, and subsequently developed a midline hernia, failed prior laparoscopic repair with IPOM. He was morbidly obese and has had a laparoscopic gastric sleeve done more than a year a go and is down to bmi of 34.4. He continues to be symptomatic and has enlarging prominent, large bulge at the midline above the umbilicus for which he is wearing an abdominal binder daily. He has been following up with us in the clinic and is now setup for repair of his incisional hernia with plans for abdominal wall reconstruction FINDINGS: Internally the week portion of the fascia which includes the diastatic muscle, multiple Ecuadorean cheese holes in the midline along the laparotomy incision measures 13 (transversely) x 12 cm. The rectus muscles are diastatic from the sternal area down to the mid hypogastric area between the umbilicus and pubic symphysis with starting diastasis of 4 cm at the level of the xiphisternum. He had a prior IPOM mesh with very dense adhesions to multiple loops of small bowel. Performing lysis of adhesions laparoscopically took close to 2 hours to avoid bowel injury. Most of the mesh save for the lateral portions which were quite incorporated to the posterior sheath were removed. Adhesions of the transverse colon, omentum, small bowel to the peritoneum and posterior sheath were lysed to create a tension-free closure of the posterior wall/sheath. SPECIMENS REMOVED: previous mesh (partially removed), prior scar, hernia sac. PROCEDURE NOTE: extensive scar, adhesions of omentum to the midline , dense adhesions of bowel to mesh, bowels to bowels and bowels to abdominal wall. DESCRIPTION OF PROCEDURE: Patient was given a dose of Ancef 2 g IV preoperatively for wound prophylaxis. This was redosed 1 g IV every 4 hours.as part of ERAS, he received 400 mg Celebrex p.o. He got 5000 units heparin subcutaneously for chemical DVT prophylaxis. He was brought to the operating room, place supine on the table. Compression boots placed on bilateral lower extremities for DVT prophylaxis. General endotracheal anesthesia then started. A Lai catheter was placed for urine output monitoring. His abdomen was then widely prepped and draped in usual sterile fashion. The bed was flexed to increase the space in between her costal cartilage and anterior superior iliac spine. Both arms were tucked.We paused for a surgical timeout using both pre-incision safety checklist to verify correct patient, procedure site and additional clinical information prior to beginning the procedure I marked the external landmarks as well as prior scars, location of the hernia, location of the midline, extent of the diastasis, location of the semilunar line on both sides. He is a midline laparotomy incision from a trauma extending to below the xiphisternum to above the symphysis pubis with a widened scar most notably at the epigastric area. I could palpate 2 separate hernias and maybe few more small hernias along that line most notably located above the umbilicus the largest one being about 6 x 5 cm. He has a wide diastases of the rectus muscle probably both from being morbidly obese as well as diastatic healing of the laparotomy incision extending upwards of 13 cm at the level of the umbilicus. I started with the left upper quadrant approach and made a small incision, medial to the anticipated left semilunar line. After creating a small incision, the [employer] 5 mm optical port was placed in through to the incision until the rectus muscles were visible. This allowed me to enter the retro-muscular plane on the left upper quadrant under direct vision of a 5 mm laparoscope. Insufflation is then started to a pressure of 15 mmHg to separate the rectus muscle from the posterior sheath. I continued with blunt dissection to create space inferior to our entry. Once an adequate space about 8-10 cm inferiorly was created an 8 mm robotic trocar was placed under direct vision of the laparoscope. Using this as my instrument port site, I used a laparoscopic scissors connected to a monopolar cautery to continue inferior dissection down t o the level of the pubic tubercle. Another 8 mm robotic trocar was placed under direct vision about 8-10 cm below the second port. The original 5 mm port was exchanged for a 12 mm robotic trocar. I completed the dissection of the left retro-muscular plane by freeing up the area superior to our initial entry. The da Jesus robot was then positioned in place and the trochars docked to the robot. I used an 8 mm camera pointed upwards, robotic scissors as well as a forced bipolar instrument for the procedure. I then scrubbed out and took control of the camera and instruments at the surgeon's console while my cable splicer assistant remained on the field to manage the instruments, adjustment of the robotic arms and exchange of laparoscopic materials (i.e. sutures, laparoscopic Kitners I further develop the left retro-muscular plane to the level of the linea alba. I started my crossover above the location of the falciform ligament at the epigastric area above where I could feel the highest point of the hernia. The medial edge of the linea alba was cut 1 cm away and we entered the preperitoneal plane above the falciform ligament. The fatty tissues at the area were swept downwards away from the linea alba. I extended my dissection superiorly and inferiorly to the level of the highest location of the hernia. I was trying to find the right edge of the linea alba but patient has a very wide diastases and very possibly denervated or weekend and flatten the rectus muscle it was hard to ascertain whether I am beyond the right medial edge of the linea alba or not. So I decided to further my dissection inferiorly to try to do my crossover inferiorly above the bladder below the arcuate ligament to get to the other side. Due to the presence of the hernia and it was quite difficult to m aintain a good view of the the port lower medial space unfortunately. Thus I decided to proceed dissecting at the hernia space itself. For some time I was trying to keep the hernia sac03. With the posterior sheath anticipating I will need this later on for closure of the posterior sheath given the size of the diastases and the multiple hernia defects. Eventually he needed to get through the hernia sac as the sac itself becomes thin and filmy. Thus at this point I was able to enter intraperitoneally. I slowed down my dissection noticing good amount of bowel adhesions to the anterior abdominal wall together with multiple large omental adhesions that were going through the Ecuadorean cheese hernia defects. I slowly came down upon this adhesions and on areas where there are adhered bowels, I performed my dissection mostly with cold scissors without any energy to prevent bowel injury which will impact the hernia repair. This process took more than an hour just to get an adequate view of the structures intraperi toneally. I slowly and meticulously took apart the bowel additions to the mesh which is no visible. This seems to be flattened to the abdominal wall but unable to cover the whole of the Ecuadorean cheese hernia defects and likewise is embedded into the diastatic portion of the linea alba. There are about 3 or 4 different loops of bowels that are densely adhered to the mesh. I decided for some point to detach the mesh from the anterior abdominal wall and include this with my posterior sheath dissection to avoid injury to unseen bowels. Also, as I was able to get a better look at the abdominal wall intraperitoneally I was able to figure out the extent of the diastases, the location of the medial aspect of the right side of the linea alba as well as the semilunar line in the right side. Thus I was able to continue my dissection to cross over to the right retrorectus space. Most of the right side bowel adhesions which also includes the transverse colon which is adhered to the posterior sheath, falciform ligament as well as the omental attachments to the peritoneum were taken down. I left the left-sided bowels including those that were adhered to the left side of the mesh for later dissection with a redocked. I then completed my right retrorectus dissection to the right semilunar line bordered by the presence of the neurovascular bundles on that side. This extends up to the level of the xiphisternum and below to the level of the internal ring and symphysis pubis though I did not proceed going into the space of Retzius as most of the hernia is above the umbilicus. I further this laterally entering the space of Bogros with mostly blunt dissection to prepare for the transversus abdominis release. At this point I proceeded with a top- down TAR. Medial to the site of the neurovascular bundles, the inferior lamella of the internal oblique was opened up to reveal the muscular portion of the transversus abdominis muscle. The transversus abdominis muscle was cut to enter the pretransversalis plane and with the laparoscopic Kitner and intermittent cautery, sharp dissection the pretransversalis plane is opened up gradually as I continued coming down and opening up the inferior lamella of the IO and gradually the muscular and then the fibrous portion of the transversus abdominis muscle. When the tissues turn sticky I converted to a bottoms up TAR, by creating a lateral tunnel with blunt dissection past the arcuate ligament and slowly dividing the IO and transversus abdominis muscle/fibers. Eventually both the bottom dissection and superior dissection met to complete the release. Further development of the pretransversalis and preperitoneal plane laterally and inferiorly was done up until the posterior sheath is draped on top of the underlying bowels. The superior portion was likewise extended to the level of the xiphisternum slightly coming down below the fatty appendages at the xiphisternum. I inspected the status of the posterior sheath. There was only 1 small hole at the peritoneum/posterior sheath and this was repaired with a 3-0 Vicryl in a mattress fashion. At this point I asked my cable splicer assistant to place 3 parallel ports to the right side. 3 8 mm ports were placed under direct vision. The robotic arms were undocked and the boom rotated to be docked to the right side to proceed with the left side TAR. Before proceeding with the left TAR, I again inspected the status of the bowels as well as the adhesions to the posterior sheath/peritoneum over on the left side that was not visible on my previous vantage view and the left side. The transverse colon, omentum attaching to the posterior sheath and the omentum superiorly were divided sharply. The left over bowel attachments to the prior mesh were completely lysed and I inspected the status and health of the previously involved bowels to make sure there were no bowel injuries. Once this was done, in the same manner, a left TAR is performed. Again the pretransversalis plane was opened up widely up until the posterior sheath/peritoneum is draped to the bowels and is meeting the opposite flap without tension. I then proceeded with closing the posterior sheath with a running suture of 2 OV lock. I decided to cut out the free portions of the mesh which is about I would asked about 90% of the mesh and the the well incorporated portion of the mesh with the posterior sheath as the free portion seems raggedy with left over V-Loc sutures. This was cut out into smaller strips to be able to be removed through the 12 mm port. I incorporated the remnants of the mesh with the cherri sure reinforcing this with 2-0 Vicryls also incorporating fresh tissue with the closure of the mesh. The whole posterior sheath was closed without tension. I then switched my attention on the anterior fascia to evaluate the status of the anterior fascia as well as the diastases. As mentioned he has such a wide diastases. I measured it internally about 13 cm at the level just above the umbilicus. The diastases also measures up to 5 cm at the level of the xiphisternum and did not taper down as is usual. The diastases extends to the midportion in between the umbilicus and symphysis pubis and tapers down. I initially tried to close the diastases at the upper midline but due to its width and closed noticed to the xiphisternum I did not think this was possible laparoscopically. At this point I terminated the robotic portion and proceeded opening up the midline. I scrubbed back in and the robot was removed from the field. We decompressed the abdomen. I created a cruciate incision around the widened scar to remove this and deepened this down until we got through the anterior sheath. The Ecuadorean cheese weak portions of the fascia was likewise removed as well as the hernia sac accompanying this. A slight undermining of the subcutaneous tissue was created to fully expose the remnants of the linea alba. At this point I evaluated measured the space above the posterior sheath that we dissected. It was well more than 40 x 40 cm. I got a 45 x 30 cm Parietene mid weight bear polypropylene mesh. I cut this into 40 x 30 cm. And I tried placing it in both the white portion transversely as well as longitudinally. I decided to place this longitudinally as the 30 cm portion did not seem to be enough to cover the longitudinal length. This was laid down on the floor i.e. posterior sheath and tucked underneath the curvature of the posterior sheath. I then sprayed the surface with 2 vials of Tisseel glue. No other fixations were placed. I threaded a 19 Bienvenido drain in both sides. The right Bienvenido drain was coursing th rough to the lower abdomen and pelvis with the left one coursing up above. This was coming off both from the middle ports. I then performed a transversus abdominis plane block as we are able to see the neurovascular bundles at this point. A mixture of Exparel, 1 4% Marcaine, normal saline to make up 60 mL was infiltrated in both sides 30 mL in each side close to the course of the neurovascular bundles. The anterior sheath was closed with a running suture of #1 strata fix to approximate the medial edges of the rectus muscle together and recreate the linea alba. I removed further the excess skin and subcutaneous tissue. The fascial opening of the 12 mm left upper quadrant port was closed with 0 Vicryl in a mattress fashion. All skin incisions including the longitudinal midline incision was closed with a running subcuticular suture of 4-0 Monocryl. The drains were sutured to the skin with 2 oh silks. Dermabond was used to cover the port sites and they placed a Prevena wound VAC dressing through the midline incision. Patient tolerated the procedure well. He was promptly awakened, extubated and brought to recovery room in stable condition. All counts of sponges and instruments were verified correct. SILVER ISSA MD Jan 04, 2021 07:07
[2021-01-04 07:09] LABS: BLOOD UREA NITROGEN 15 MG/DL (7-18); CALCIUM LEVEL 8.4 MG/DL (8.8-10.2); CARBON DIOXIDE LEVEL 26 MEQ/L (21-32); CHLORIDE LEVEL 104 MEQ/L (98-107); CREATININE FOR GFR 0.72 MG/DL (0.70-1.30); GLOMERULAR FILTRATION RATE > 60.0 (>49); GLUCOSE, FASTING 142 MG/DL (70-100); POTASSIUM SERUM 4.7 MEQ/L (3.5-5.1); SODIUM LEVEL 137 MEQ/L (136-145)
[2021-01-04 07:43] LABS: WHITE BLOOD COUNT 12.9 10^3/uL (4.0-10.0)
--- NOTE | 2021-01-04 08:21 | IPNPDOC ---
Text Note Date of Service The patient was seen on 01/04/21. NOTE General surgery. Dr. Issa. The patient is a 66-year-old male status post robotic assisted laparoscopic incisional hernia repair. The patient is sitting up in bed this morning, reports pain is controlled. Tolerated clear liquids this morning. Afebrile. VSS MMM Lungs are clear to auscultation S1-S2 regular rate rhythm Abdomen with midline incision, wound VAC intact. JORGE drain right and left abdomen with serosanguineous drainage. Dressings clean/dry/intact. No edema WBC 12.9, hemoglobin 10.2, platelet 356 JORGE drain right abdomen 70 ml, left 100 mL Assessment/plan Postop day 1 status post incisional hernia repair as per Dr. Issa The patient is reviewed and examined as per Dr. Issa this morning. DC IVF Plan to advance to regular diet Discontinue Lai Apply abdominal binder Encourage out of bed DM. Metformin/SSI HS DVT prophylaxis Lovenox VS,Fishbone, I+O VS, Fishbone, I+O Laboratory Tests 01/04/21 05:57 Vital Signs Date Time Temp Pulse Resp B/P (MAP) Pulse Ox O2 Delivery O2 Flow Rate FiO2 01/04/21 06:00 97.7 97 16 129/68 (88) 98 Nasal Cannula 1.0 I&O- Last 24 Hours up to 6 AM 01/04/21 05:59 Intake Total 6985 ml Output Total 3595 ml Balance 3390 ml Attending Note Attending Note I saw and evaluated the patient independently. He looks very comfortable and reports very minimal pain. He is getting scheduled doses of Toradol IV and also received transversus abdominis plane block intraoperatively using Exparel. No overnight events. His abdomen looks benign, not distended. He has a midline incision covered with Prevena with minimal drainage in the vacuum canister. Bilateral Enoch-Julio drains with serous sanguinous (slightly on the bloody side) drainage. Surprisingly the left drain is draining out more. The right drain goes just above the pelvis. Nontender on palpation. With Valsalva no evidence of herniation. Reveals intact repair. Impression and plan Postop day 1 hybrid/robotic assisted laparoscopic [place] Stoppa repair with bilateral transversus abdominis release for recurrent midline Mexican cheese hernia and associated wide 13 cm diastases of the linea alba I have discontinued his IV fluid. He is allowed to proceed to regular diet. I have instructed him to continue with incentive spirometer's. We will discontinue the Lai catheter. I instructed him to wear an abdominal binder for the next 4 to 6 weeks until he is fully healed as an additional support when he is upright and ambulating. He can leave this open when he is just reclining on the chair or laying down. We will continue to monitor the drainage output. We will see if we could remove one of the drains prior to sending him home. Patient is instructed to ambulate to the hallways. Funmilayo Chirinos Jan 04, 2021 08:21 GALA ISSA MD Jan 04, 2021 15:20
[2021-01-04] MEDS ORDERED: PREVNAR 13 VACCINE SYRINGE IM ONE (09:00)
[2021-01-04] MEDS: ENOXAPARIN 40MG/0.4ML SYRINGE (J1650 PER 10MG) SC SCH (09:04)
[2021-01-04] MEDS: SENOKOT S TAB PO SCH ×2 (09:04→20:56)
[2021-01-04] MEDS: metFORMIN XR 500MG TAB *GLUCOPHAGE XR PO SCH (09:04)
[2021-01-04 10:00] VITALS: BP 118/66
[2021-01-04 14:00] VITALS: BP 116/68
[2021-01-04] MEDS: HumaLOG INSULIN (NovoLOG) PER UNIT SC SCH (21:10)
[2021-01-04 22:00] VITALS: BP 125/84
[2021-01-05] MEDS: PERCOCET 5MG/325MG TAB PO PRN (04:25)
[2021-01-05] MEDS: KETOROLAC 30 MG/ML 1ML VIAL IV SCH (05:41)
[2021-01-05 06:00] VITALS: BP 129/81
[2021-01-05 06:21] LABS: BASO # 0.1 10^3/uL (0.0-0.2); BASO % 0.5 % (0.0-1.0); EOS # 0.7 10^3/uL (0.0-0.5); EOS % 5.7 % (0.0-3.0); HEMATOCRIT 30.4 % (42.0-52.0); HEMOGLOBIN 10.1 g/dl (13.5-17.5); LYMPH # 2.6 10^3/uL (1.5-5.0); LYMPH % 21.7 % (24.0-44.0); MEAN CORPUSCULAR HEMOGLOBIN 22.6 pg (27.0-33.0); MEAN CORPUSCULAR HGB CONC 33.2 g/dl (32.0-36.5); MONO # 1.5 10^3/uL (0.0-0.8); MONO % 12.8 % (2.0-8.0); PLATELET COUNT, AUTOMATED 340 10^3/uL (150-450); RED BLOOD COUNT 4.47 10^6/uL (4.30-6.10)
[2021-01-05 06:26] LABS: WHITE BLOOD COUNT 11.8 10^3/uL (4.0-10.0)
[2021-01-05 06:50] LABS: BLOOD UREA NITROGEN 15 MG/DL (7-18); CALCIUM LEVEL 7.7 MG/DL (8.8-10.2); CARBON DIOXIDE LEVEL 27 MEQ/L (21-32); CHLORIDE LEVEL 105 MEQ/L (98-107); CREATININE FOR GFR 0.66 MG/DL (0.70-1.30); GLOMERULAR FILTRATION RATE > 60.0 (>49); GLUCOSE, FASTING 147 MG/DL (70-100); POTASSIUM SERUM 4.1 MEQ/L (3.5-5.1); SODIUM LEVEL 137 MEQ/L (136-145)
[2021-01-05] MEDS: ENOXAPARIN 40MG/0.4ML SYRINGE (J1650 PER 10MG) SC SCH (08:10)
[2021-01-05] MEDS: SENOKOT S TAB PO SCH (08:10)
[2021-01-05] MEDS: metFORMIN XR 500MG TAB *GLUCOPHAGE XR PO SCH (08:10)
[2021-01-05] MEDS ORDERED: PERCOCET PO (08:38)
[2021-01-05] MEDS ORDERED: CELE1CAP9 PO (08:40)
--- NOTE | 2021-01-05 08:52 | DS.PDOC ---
Discharge Summary General Date of Admission Jan 03, 2021 at 06:04 Date of Discharge January 05, 2021 Attending Physician: GALA RHODES MD Discharge Summary PROCEDURES PERFORMED DURING STAY: Robotic assisted laparoscopic Kasbeer Stoppa repair of large midline incisional hernia with bilateral transversus abdominis release performed January 03, 2021. ADMITTING DIAGNOSES: 1. Large midline incisional hernia with diastases, recurrent 2. Moderate obesity BMI 34.4 3. Diabetes. DISCHARGE DIAGNOSES: 1. Large midline incisional hernia with diastasis, recurrent status post repair 2. Moderate obesity 3. Diabetes. COMPLICATIONS/CHIEF COMPLAINT: Incisional Hernia. HISTORY OF PRESENT ILLNESS: Patient is brought in electively for repair of his recurrent midline incisional hernia secondary to prior trauma laparotomy. HOSPITAL COURSE: Patient underwent robotic assisted laparoscopic repair of his incisional hernia which took several hours. He remained stable throughout the procedure and as well as perioperatively. He had a midline incision covered with Prevena, 6 lateral port sites, 3 on each side. 2 drains which are both located retromuscularly. He was admitted to the medical surgical floor. Multimodality pain control was used including giving him Celebrex 400 mg preoperatively, transversus abdominis plane block using Exparel/1/4% Marcaine mixture, IV Toradol and scheduled doses and rescue doses of narcotics. He did well with this regimen. His Lai catheter was kept overnight. He was making adequate urine and this was discontinued in the morning of postop day 1. He was allowed clear liquids soon as he is up in his room and this was advanced to regular diet the following morning. He was up and about, walking independently. He was using an abdominal binder as an extra support per my instructions. The drain output was monitored and is gradually coming down though this still averages more than 100 mL a day. His Prevena was working without any problems. On day of discharge patient looks very comfortable, tolerating regular food, passing flatus though did not have a full bowel movement as of yet. He is not requiring a lot of narcotic pain medications.. DISCHARGE MEDICATIONS: Please see below. ALLERGIES: Please see below. PHYSICAL EXAMINATION ON DISCHARGE: VITAL SIGNS: Please see below. GENERAL: Patient looks very comfortable HEENT: Normocephalic, pink palpebral conjunctiva, moist lips and mucosa NECK: Short, supple, no jugular venous distention CARDIOVASCULAR EXAMINATION: Regular heart rate and rhythm RESPIRATORY EXAMINATION: Clear breath sounds auscultation bilaterally without wheezing ABDOMINAL EXAMINATION: Obese, soft, minimally distended, symmetrical in appearance. He has an upper abdominal incision covered with Prevena wound VAC. Wound VAC canister does not have any drainage at all. Lakia suction is working. The drape has a good seal. He is 3 port sites on each side on the middle of those port sites there are bilateral 19 Bienvenido round drains each of which is putting out thin serosanguineous fluid. Average output is decreasing. Yesterday this was 150 mLs. Overnight this is 35 and 38 mL. EXTREMITIES: No significant extremity edema SKIN: Warm and dry NEUROLOGICAL EXAMINATION: Awake, alert and oriented LABORATORY DATA: Please see below. IMAGING: None PROGNOSIS: Good ACTIVITY: Light activity. May ambulate as tolerated. Can go up and down the stairs. Wear abdominal binder when upright, engage in activity for the next 4 to 6 weeks. DIET: As tolerated DISCHARGE PLAN: Patient is discharged home both with the Lakia wound VAC as well as with the drains DISPOSITION: . DISCHARGE INSTRUCTIONS: 1. Arrange for follow-up with Funmilayo Chirinos next week 2. Follow-up with me in 2 weeks 3. Check status of suction/seal of the Prevena wound VAC. Change battery of low (uses 3 AA batteries) if seal is lost reinforced area or call our office 4. Drain JORGE bulb at least once a day. Record daily output separately on each side report if there are any changes in the character of the drainage, increase in amount of drainage or if JORGE bulb is not working. ITEMS TO FOLLOWUP ON ON OUTPATIENT: 1. JORGE drainage 2. Pain status. DISCHARGE CONDITION: Stable. TIME SPENT ON DISCHARGE: 45 minutes. Vital Signs/I&Os Vital Signs Date Time Temp Pulse Resp B/P (MAP) Pulse Ox O2 Delivery O2 Flow Rate FiO2 01/05/21 06:00 98.6 94 17 129/81 (97) 90 Room Air 01/04/21 10:00 1.0 I&O- Last 24 Hours up to 6 AM 01/05/21 05:59 Intake Total 3010 ml Output Total 1990 ml Balance 1020 ml Laboratory Data Labs 24H Laboratory Tests 2 01/04/21 11:55: Bedside Glucose (Misc Panel) 162H 01/04/21 16:51: Bedside Glucose (Misc Panel) 185H 01/04/21 21:01: Bedside Glucose (Misc Panel) 261H 01/05/21 06:08: Immature Granulocyte % (Auto) 0.3, Neutrophils (%) (Auto) 59.0, Lymphocytes (%) (Auto) 21.7L, Monocytes (%) (Auto) 12.8H, Eosinophils (%) (Auto) 5.7H, Basophils (%) (Auto) 0.5, Neutrophils # (Auto) 7.0, Lymphocytes # (Auto) 2.6, Monocytes # (Auto) 1.5H, Eosinophils # (Auto) 0.7H, Basophils # (Auto) 0.1, Nucleated Red Blood Cells % (auto) 0.3H, Anion Gap 5L, Glomerular Filtration Rate > 60.0, Calcium Level 7.7L, C-Reactive Protein, Quantitative 10.60H CBC/BMP Laboratory Tests 01/05/21 06:08 FSBS Laboratory Tests Test 01/04/21 11:55 01/04/21 16:51 01/04/21 21:01 Range/Units Bedside Glucose (Misc Panel) 162 185 261 80-115 MG/DL Discharge Medications Scheduled Alpha Lipoic Acid (Alpha Lipoic Acid) 600 Mg Capsule, 600 MG PO DAILY, (Reported) Biotin (Biotin) 5,000 Mcg Tab.rapdis, 5,000 MCG PO BID, (Reported) Celecoxib (Celecoxib) 200 Mg Capsule, 200 MG PO BID Cholecalciferol (Vitamin D3) (Vitamin D3) 1,000 Unit Tablet, 5,000 UNITS PO DAILY, (Reported) Dulaglutide (Trulicity) 0.75 Mg/0.5 Ml Pen.injctr, 0.75 MG SC QWEEK, (Reported) Empagliflozin (Jardiance) 25 Mg Tablet, 25 MG PO DAILY, (Reported) Metformin HCl (Metformin HCl ER) 500 Mg Tab.er.24h, 2,000 MG PO DAILY, (Reported) Multivit-Min/Iron/Folic Acid/K (Bariatric Mv-Iron 45 mg Cap) 1 Each Capsule, 2 EACH PO BID, (Reported) Scheduled PRN Acetaminophen (Tylenol Extra Strength) 500 Mg Tablet, 500 MG PO BIDP PRN for PAIN, (Reported) Oxycodone/Acetaminophen (Oxycodone-Acetaminophen 5-325) 1 Each Tablet, 1 TAB PO Q6HP PRN for moderate pain Allergies Coded Allergies: No Known Allergies (Unverified , 12/20/20) GALA RHODES MD Jan 05, 2021 08:52
== END 2021-01-05 10:31 | disposition home or self-care (01) | DRG 227 ==
LOC: M OR 06:04 → M MSPAV 17:51
PROVIDERS: ADMIT Surgery; ATTEND Surgery
PROC: 0WUF4JZ Supplement Abdominal Wall with Synthetic Substitute, Percutaneous Endoscopic Approach (ICD-10-PCS; 2021-01-03)
PROC: 8E0W4CZ Robotic Assisted Procedure of Trunk Region, Percutaneous Endoscopic Approach (ICD-10-PCS; 2021-01-03)
PROC: 0DN84ZZ Release Small Intestine, Percutaneous Endoscopic Approach (ICD-10-PCS; principal; 2021-01-03 07:30)
DX: K43.0 Incisional hernia with obstruction, without gangrene (principal); M62.08 Separation of muscle (nontraumatic), other site; Z98.84 Bariatric surgery status; E11.9 Type 2 diabetes mellitus without complications; E66.9 Obesity, unspecified; Z68.34 Body mass index [BMI] 34.0-34.9, adult; Z79.84 Long term (current) use of oral hypoglycemic drugs; E78.00 Pure hypercholesterolemia, unspecified

== ENCOUNTER 2021-04-17 16:56 | Emergency (ER) | payer MEDICARE, BC ==
[~2021-04-17] VITALS: Ht 190.5 cm; Wt 133.1 kg
[~2021-04-17 16:56] MED LIST changes: -ALVIMOPAN 12 MG CAPSULE (ENTEREG) PO ONE; +CELE1CAP9 PO; -CelecoXIB 400 MG CAP PO ONE; -HEPARIN SOD (PORCINE) 5000UNITS/ML 1ML VIAL/SYRINGE SQ ONE; -LR 1,000 ML IV ONE; +PERCOCET PO; -ceFAZolin SOD 2 GM in IV 1 EA IV ONE
[2021-04-17 17:36] LABS: BASO # 0.2 10^3/uL (0.0-0.2); BASO % 1.5 % (0.0-1.0); EOS # 0.7 10^3/uL (0.0-0.5); EOS % 5.8 % (0.0-3.0); HEMATOCRIT 34.1 % (42.0-52.0); HEMOGLOBIN 11.4 g/dl (13.5-17.5); LYMPH # 4.9 10^3/uL (1.5-5.0); LYMPH % 42.4 % (24.0-44.0); MEAN CORPUSCULAR HEMOGLOBIN 22.2 pg (27.0-33.0); MEAN CORPUSCULAR HGB CONC 33.4 g/dl (32.0-36.5); MEAN CORPUSCULAR VOLUME 66.5 fl (80.0-96.0); MONO # 0.7 10^3/uL (0.0-0.8); MONO % 5.8 % (2.0-8.0); NEUTROPHILS # 5.2 10^3/uL (1.5-8.5); NEUTROPHILS % 44.2 % (36.0-66.0); PLATELET COUNT, AUTOMATED 385 10^3/uL (150-450); RED BLOOD COUNT 5.13 10^6/uL (4.30-6.10); WHITE BLOOD COUNT 11.6 10^3/uL (4.0-10.0)
[2021-04-17 17:45] LABS: INR 0.95
[2021-04-17 17:46] LABS: PARTIAL THROMBOPLASTIN TIME 27.7 SECONDS (25.9-37.0)
[2021-04-17 17:54] LABS: BLOOD UREA NITROGEN 16 MG/DL (7-18); CARBON DIOXIDE LEVEL 26 MEQ/L (21-32); CHLORIDE LEVEL 106 MEQ/L (98-107); CREATININE FOR GFR 0.74 MG/DL (0.70-1.30); GLOMERULAR FILTRATION RATE > 60.0 (>49); GLUCOSE, FASTING 194 MG/DL (70-100); POTASSIUM SERUM 4.1 MEQ/L (3.5-5.1); SODIUM LEVEL 140 MEQ/L (136-145)
[2021-04-17 17:58] LABS: CK-MB VALUE MASS 1.2 NG/ML (<3.6); MB/CK RELATIVE INDEX 1.26 (< OR =4)
[2021-04-17 18:49] LABS: RSV AMPLIFICATION NEGATIVE (NEGATIVE)
[2021-04-17] MEDS ORDERED: ALTEPLASE RECOMBINANT 81 MG in IV 1 EA IV ONE (19:50)
[2021-04-17] MEDS ORDERED: ALTEPLASE 100MG VIAL IV ONE (19:50)
[2021-04-17] MEDS ORDERED: BIOT10009 PO (19:56)
[2021-04-17] MEDS ORDERED: DULA3PEN SQ (19:56)
[2021-04-17] MEDS ORDERED: SODIUM CHLORIDE 0.9% 50 ML IV ONE (20:50)
[2021-04-17 21:15] VITALS: BP 136/81
[2021-04-17] MEDS ORDERED: LABETALOL 100MG/20ML VIAL IV STA (21:30)
[2021-04-17] MEDS ORDERED: LABETALOL 100MG/20ML VIAL As Ordered ONE (21:31)
== END 2021-04-17 21:27 | disposition short-term general hospital (02) ==
LOC: EDBD 16:56 → M ED 16:56
DX: I63.9 Cerebral infarction, unspecified (principal); E11.9 Type 2 diabetes mellitus without complications; I48.91 Unspecified atrial fibrillation; Z91.048 Other nonmedicinal substance allergy status; Z79.899 Other long term (current) drug therapy; Z79.84 Long term (current) use of oral hypoglycemic drugs
CPT/HCPCS: 70450; 70551; 71045; 80047; 80048; 82550; 82553; 84484; 85025; 85610; 85730; 86850; 86900; 86901; 87631; 93005; 93041; 94760; 96365; 99291; 99292; J2997

== ENCOUNTER → 2021-10-16 | Outpatient (CLI) | payer MEDICARE, BC ==
[~2021-10-16] MED LIST changes: +BIOT10009 PO; -D31000TA2 PO; +DULA3PEN SQ; +VITA100093 PO
[2021-10-16 08:09] LABS: BASO # 0.2 10^3/uL (0.0-0.2); BASO % 2.2 % (0.0-1.0); EOS # 0.4 10^3/uL (0.0-0.5); EOS % 5.4 % (0.0-3.0); HEMATOCRIT 33.6 % (42.0-52.0); LYMPH # 3.5 10^3/uL (1.5-5.0); LYMPH % 44.3 % (24.0-44.0); MEAN CORPUSCULAR HEMOGLOBIN 22.6 pg (27.0-33.0); MEAN CORPUSCULAR HGB CONC 32.7 g/dl (32.0-36.5); MONO # 0.7 10^3/uL (0.0-0.8); NEUTROPHILS # 3.1 10^3/uL (1.5-8.5); PLATELET COUNT, AUTOMATED 481 10^3/uL (150-450); RED BLOOD COUNT 4.87 10^6/uL (4.30-6.10); WHITE BLOOD COUNT 7.9 10^3/uL (4.0-10.0)
[2021-10-16 08:35] LABS: ALBUMIN 3.6 GM/DL (3.2-5.2); ALT/SGPT 13 U/L (12-78); BILIRUBIN,TOTAL 1.6 MG/DL (0.2-1.0); BLOOD UREA NITROGEN 18 MG/DL (7-18); CALCIUM LEVEL 9.7 MG/DL (8.8-10.2); CARBON DIOXIDE LEVEL 29 MEQ/L (21-32); CHLORIDE LEVEL 108 MEQ/L (98-107); CHOLESTEROL LEVEL 104 MG/DL (<200); CHOLESTEROL RISK RATIO 2.039 (<5); FERRITIN 255 NG/ML (26-388); GLOMERULAR FILTRATION RATE > 60.0 (>49); GLUCOSE, FASTING 136 MG/DL (70-100); HDL CHOLESTEROL 51 MG/DL (>40); IRON (FE) 121 UG/DL (65-175); LDL CHOLESTEROL 39 MG/DL (<100); NON-HDL-C 53 MG/DL; PERCENT SATURATION 45.1 % (19.7-50.0); POTASSIUM SERUM 4.6 MEQ/L (3.5-5.1); SODIUM LEVEL 141 MEQ/L (136-145); TOTAL IRON BINDING CAPACITY 268 UG/DL (250-450); TOTAL PROTEIN 6.8 GM/DL (6.4-8.2); TRIGLYCERIDES LEVEL 71 MG/DL (<150)
[2021-10-16 08:46] LABS: CREATININE, URINE 76.4 MG/DL; MALB URINE SIEMENS 24.8 MG/L; MAU/CREAT RATIO 32.4 MCG/MG (0.0-30.0)
[2021-10-16 09:45] LABS: VITAMIN B12 LEVEL 927 PG/ML
[2021-10-16 09:46] LABS: FOLATE > 24.0 NG/ML
== END ==
LOC: M LAB 07:32
PROVIDERS: ATTEND Nurse Practitioner Family
DX: I10 Essential (primary) hypertension (principal); E11.65 Type 2 diabetes mellitus with hyperglycemia; Z98.84 Bariatric surgery status

== ENCOUNTER → 2022-04-25 | Outpatient (CLI) | payer BC, MEDICARE ==
[2022-04-25 12:08] LABS: BASO # 0.1 10^3/uL (0.0-0.2); BASO % 1.5 % (0.0-1.0); EOS # 0.1 10^3/uL (0.0-0.5); EOS % 1.9 % (0.0-3.0); HEMATOCRIT 35.2 % (42.0-52.0); HEMOGLOBIN 11.4 g/dl (13.5-17.5); LYMPH # 2.4 10^3/uL (1.5-5.0); LYMPH % 35.9 % (24.0-44.0); MEAN CORPUSCULAR HEMOGLOBIN 22.4 pg (27.0-33.0); MEAN CORPUSCULAR HGB CONC 32.4 g/dl (32.0-36.5); MEAN CORPUSCULAR VOLUME 69.2 fl (80.0-96.0); MONO # 0.7 10^3/uL (0.0-0.8); MONO % 10.1 % (2.0-8.0); NEUTROPHILS # 3.4 10^3/uL (1.5-8.5); NEUTROPHILS % 50.3 % (36.0-66.0); PLATELET COUNT, AUTOMATED 453 10^3/uL (150-450); RED BLOOD COUNT 5.09 10^6/uL (4.30-6.10); WHITE BLOOD COUNT 6.8 10^3/uL (4.0-10.0)
[2022-04-25 12:35] LABS: MAGNESIUM LEVEL 2.2 MG/DL (1.8-2.4)
[2022-04-25 12:37] LABS: ALBUMIN 3.8 G/DL (3.2-5.2); ALKALINE PHOSPHATASE 41 U/L (46-116); ALT/SGPT 13 U/L (7.0-40); AST/SGOT 11 U/L (<34); BLOOD UREA NITROGEN 21 MG/DL (9-23); CALCIUM LEVEL 9.4 MG/DL (8.3-10.6); CARBON DIOXIDE LEVEL 28 MMOL/L (20-31); CHLORIDE LEVEL 105 MMOL/L (98-107); CREATININE FOR GFR 0.66 MG/DL (0.70-1.30); GLOMERULAR FILTRATION RATE > 60.0 (>49); GLUCOSE, FASTING 122 MG/DL (74-106); POTASSIUM SERUM 4.6 MMOL/L (3.5-5.1); SODIUM LEVEL 137 MMOL/L (136-145); TOTAL PROTEIN 6.4 G/DL (5.7-8.2)
[2022-04-25 12:39] LABS: FREE T4 1.21 NG/DL (0.89-1.76); THYROID STIMULATING HORMONE 3.511 uIU/ML (0.55-4.78)
== END ==
LOC: M LAB 11:25
PROVIDERS: ATTEND Nurse Practitioner Family
DX: I48.92 Unspecified atrial flutter (principal)

== ENCOUNTER → 2022-10-16 | Outpatient (CLI) | payer BC, MEDICARE ==
[2022-10-16 11:03] LABS: BASO # 0.1 10^3/uL (0.0-0.2); BASO % 1.3 % (0.0-1.0); EOS # 0.3 10^3/uL (0.0-0.5); EOS % 3.2 % (0.0-3.0); HEMATOCRIT 33.7 % (42.0-52.0); LYMPH # 3.1 10^3/uL (1.5-5.0); LYMPH % 35.6 % (24.0-44.0); MEAN CORPUSCULAR HEMOGLOBIN 22.4 pg (27.0-33.0); MEAN CORPUSCULAR HGB CONC 32.6 g/dl (32.0-36.5); MEAN CORPUSCULAR VOLUME 68.6 fl (80.0-96.0); MONO # 0.8 10^3/uL (0.0-0.8); MONO % 9.5 % (2.0-8.0); NEUTROPHILS # 4.4 10^3/uL (1.5-8.5); NEUTROPHILS % 50.2 % (36.0-66.0); PLATELET COUNT, AUTOMATED 499 10^3/uL (150-450); RED BLOOD COUNT 4.91 10^6/uL (4.30-6.10); WHITE BLOOD COUNT 8.7 10^3/uL (4.0-10.0)
[2022-10-16 11:24] LABS: CREATININE, URINE 56.5 MG/DL
[2022-10-16 11:25] LABS: MAU/CREAT RATIO 17.6 MCG/MG (0.0-30.0)
[2022-10-16 11:26] LABS: IRON (FE) 101 UG/DL (65-175); PERCENT SATURATION 37.4 % (19.7-50.0); TOTAL IRON BINDING CAPACITY 270 UG/DL (250-425)
[2022-10-16 11:27] LABS: ALBUMIN 3.8 G/DL (3.2-5.2); ALKALINE PHOSPHATASE 47 U/L (46-116); ALT/SGPT 13 U/L (7.0-40); AST/SGOT 15 U/L (<34); BILIRUBIN,TOTAL 1.7 MG/DL (0.3-1.2); BLOOD UREA NITROGEN 17 MG/DL (9-23); CALCIUM LEVEL 8.9 MG/DL (8.3-10.6); CARBON DIOXIDE LEVEL 29 MMOL/L (20-31); CHLORIDE LEVEL 102 MMOL/L (98-107); CHOLESTEROL LEVEL 102 MG/DL (<200); CHOLESTEROL RISK RATIO 2.16 (<5); CREATININE FOR GFR 0.67 MG/DL (0.70-1.30); GLOMERULAR FILTRATION RATE > 60.0 (>49); GLUCOSE, FASTING 133 MG/DL (74-106); HDL CHOLESTEROL 47.1 MG/DL (>40); LDL CHOLESTEROL 39.3 MG/DL (<100); NON-HDL-C 54.9 MG/DL; SODIUM LEVEL 137 MMOL/L (136-145); TOTAL PROTEIN 6.3 G/DL (5.7-8.2); TRIGLYCERIDES LEVEL 78 MG/DL (<150)
[2022-10-16 11:29] LABS: THYROID STIMULATING HORMONE 3.308 uIU/ML (0.55-4.78)
[2022-10-16 11:30] LABS: FERRITIN 281.2 NG/ML (10.5-307.3); FREE T4 0.94 NG/DL (0.89-1.76); VITAMIN B12 LEVEL 808 PG/ML (211-911)
[2022-10-16 11:31] LABS: FOLATE > 24.0 NG/ML (>5.4)
== END ==
LOC: M LAB 09:59
PROVIDERS: ATTEND Nurse Practitioner Family
DX: I48.92 Unspecified atrial flutter (principal); I10 Essential (primary) hypertension; E11.65 Type 2 diabetes mellitus with hyperglycemia; E03.9 Hypothyroidism, unspecified; Z98.84 Bariatric surgery status; D64.9 Anemia, unspecified

== ENCOUNTER → 2023-01-23 | Outpatient (CLI) | payer OTHER, MEDICARE, BC ==
[~2023-01-23] MED LIST changes: +CELE0.09 PO; -CELE1CAP9 PO
[2023-01-23 11:49] LABS: APPEARANCE, URINE CLEAR (CLEAR); BACTERIA, URINE AUTO NEGATIVE (NEGATIVE); BILIRUBIN, URINE AUTO NEGATIVE (NEGATIVE); BLOOD, URINE BLOOD NEGATIVE (NEGATIVE); COLOR, URINE YELLOW (YELLOW); GLUCOSE, URINE (UA) AUTO 3+ mg/dL (NEGATIVE); KETONE, URINE AUTO NEGATIVE (NEGATIVE); LEUKOCYTE ESTERASE, URINE AUTO NEGATIVE (NEGATIVE); NITRITE, URINE AUTO NEGATIVE (NEGATIVE); PROTEIN, URINE AUTO NEGATIVE (NEGATIVE); RBC, URINE AUTO 0 /HPF (0-3); SQUAMOUS EPITHELIAL CELL UR AU 0 /HPF (0-6); UROBILINOGEN, URINE AUTO 0.2 mg/dL (0.0-2.0); WBC, URINE AUTO 5 /HPF (0-3)
[2023-01-23 11:53] LABS: BASO # 0.2 10^3/uL (0.0-0.2); BASO % 1.8 % (0.0-1.0); EOS # 0.2 10^3/uL (0.0-0.5); EOS % 2.3 % (0.0-3.0); HEMATOCRIT 35.1 % (42.0-52.0); HEMOGLOBIN 11.3 g/dl (13.5-17.5); LYMPH # 3.2 10^3/uL (1.5-5.0); LYMPH % 34.8 % (24.0-44.0); MEAN CORPUSCULAR HEMOGLOBIN 22.2 pg (27.0-33.0); MEAN CORPUSCULAR HGB CONC 32.2 g/dl (32.0-36.5); MEAN CORPUSCULAR VOLUME 69.1 fl (80.0-96.0); MONO # 0.9 10^3/uL (0.0-0.8); MONO % 10.2 % (2.0-8.0); NEUTROPHILS # 4.6 10^3/uL (1.5-8.5); NEUTROPHILS % 50.6 % (36.0-66.0); PLATELET COUNT, AUTOMATED 502 10^3/uL (150-450); RED BLOOD COUNT 5.08 10^6/uL (4.30-6.10); WHITE BLOOD COUNT 9.1 10^3/uL (4.0-10.0)
[2023-01-23 12:17] LABS: INR 1.11
[2023-01-23 12:28] LABS: ALBUMIN 3.9 G/DL (3.2-5.2); ALKALINE PHOSPHATASE 49 U/L (46-116); ALT/SGPT 14 U/L (7.0-40); AST/SGOT < 8 U/L (<34); BILIRUBIN,TOTAL 1.5 MG/DL (0.3-1.2); BLOOD UREA NITROGEN 16 MG/DL (9-23); CALCIUM LEVEL 9.8 MG/DL (8.3-10.6); CARBON DIOXIDE LEVEL 27 MMOL/L (20-31); CHLORIDE LEVEL 103 MMOL/L (98-107); CREATININE FOR GFR 0.58 MG/DL (0.70-1.30); GLOMERULAR FILTRATION RATE > 60.0 (>49); GLUCOSE, FASTING 135 MG/DL (74-106); POTASSIUM SERUM 4.8 MMOL/L (3.5-5.1); SODIUM LEVEL 138 MMOL/L (136-145); TOTAL PROTEIN 6.6 G/DL (5.7-8.2)
[2023-01-23 12:29] LABS: TOTAL 25(OH) VITAMIN D 56.2 NG/ML (20.0-100.0)
== END ==
LOC: M LAB 10:47
PROVIDERS: ATTEND Physician Assistant
DX: Z01.818 Encounter for other preprocedural examination (principal)

== ENCOUNTER → 2023-05-01 | Outpatient (CLI) | payer MEDICARE, BC ==
[2023-05-01 13:31] LABS: FOLATE > 24.00 NG/ML (>5.4)
[2023-05-01 13:32] LABS: VITAMIN B12 LEVEL 1472 PG/ML (211-911)
== END ==
LOC: M LAB 12:16
PROVIDERS: ATTEND Nurse Practitioner Family
DX: E11.65 Type 2 diabetes mellitus with hyperglycemia (principal)

== ENCOUNTER → 2023-10-17 | Outpatient (CLI) | payer OTHER, MEDICARE, BC | LOC: M RAD 09:36 | PROVIDERS: ATTEND Orthopaedic Surgery | DX: M25.511 Pain in right shoulder (principal); M19.011 Primary osteoarthritis, right shoulder; M11.211 Other chondrocalcinosis, right shoulder ==

== ENCOUNTER → 2023-10-23 | Outpatient (CLI) | payer OTHER, MEDICARE, BC ==
[2023-10-23 08:39] LABS: HEMATOCRIT 32.3 % (42.0-52.0); HEMOGLOBIN 10.7 g/dl (13.5-17.5); MEAN CORPUSCULAR HEMOGLOBIN 22.7 pg (27.0-33.0); MEAN CORPUSCULAR HGB CONC 33.1 g/dl (32.0-36.5); MEAN CORPUSCULAR VOLUME 68.4 fl (80.0-96.0); PLATELET COUNT, AUTOMATED 470 10^3/uL (150-450); RED BLOOD COUNT 4.72 10^6/uL (4.30-6.10); WHITE BLOOD COUNT 9.2 10^3/uL (4.0-10.0)
[2023-10-23 08:44] LABS: APPEARANCE, URINE CLEAR (CLEAR); BACTERIA, URINE AUTO NEGATIVE (NEGATIVE); BILIRUBIN, URINE AUTO NEGATIVE (NEGATIVE); BLOOD, URINE BLOOD NEGATIVE (NEGATIVE); COLOR, URINE YELLOW (YELLOW); GLUCOSE, URINE (UA) AUTO 3+ mg/dL (NEGATIVE); KETONE, URINE AUTO NEGATIVE (NEGATIVE); LEUKOCYTE ESTERASE, URINE AUTO NEGATIVE (NEGATIVE); NITRITE, URINE AUTO NEGATIVE (NEGATIVE); PROTEIN, URINE AUTO NEGATIVE (NEGATIVE); RBC, URINE AUTO 0 /HPF (0-3); SPECIFIC GRAVITY URINE AUTO 1.033 (1.002-1.035); SQUAMOUS EPITHELIAL CELL UR AU 0 /HPF (0-6); WBC, URINE AUTO 0 /HPF (0-3)
[2023-10-23 09:15] LABS: ALBUMIN 3.7 G/DL (3.2-5.2); ALKALINE PHOSPHATASE 50 U/L (46-116); ALT/SGPT 16 U/L (7.0-40); AST/SGOT 9 U/L (<34); BLOOD UREA NITROGEN 13 MG/DL (9-23); CALCIUM LEVEL 9.4 MG/DL (8.3-10.6); CARBON DIOXIDE LEVEL 29 MMOL/L (20-31); CHLORIDE LEVEL 104 MMOL/L (98-107); CHOLESTEROL LEVEL 110 MG/DL (<200); CREATININE FOR GFR 0.55 MG/DL (0.70-1.30); GLOMERULAR FILTRATION RATE > 60.0 (>49); GLUCOSE, FASTING 169 MG/DL (74-106); HDL CHOLESTEROL 40.7 MG/DL (>40); INR 1.15; IRON (FE) 162 UG/DL (65-175); LDL CHOLESTEROL 55.3 MG/DL (<100); NON-HDL-C 69.3 MG/DL; PARTIAL THROMBOPLASTIN TIME 29.5 SECONDS (24.8-34.2); PERCENT SATURATION 59.6 % (19.7-50.0); POTASSIUM SERUM 4.4 MMOL/L (3.5-5.1); PROTHROMBIN TIME 14.4 SECONDS (12.5-14.5); SODIUM LEVEL 137 MMOL/L (136-145); TOTAL IRON BINDING CAPACITY 272 UG/DL (250-425); TOTAL PROTEIN 6.5 G/DL (5.7-8.2); TRIGLYCERIDES LEVEL 70 MG/DL (<150)
[2023-10-23 09:16] LABS: FERRITIN 237.6 NG/ML (10.5-307.3); TOTAL 25(OH) VITAMIN D 76.1 NG/ML (20.0-100.0)
[2023-10-23 09:17] LABS: VITAMIN B12 LEVEL 1252 PG/ML (211-911)
[2023-10-23 09:26] LABS: FOLATE > 24.0 NG/ML (>5.4)
[2023-10-23 10:32] LABS: ATYPICAL LYMPH 34 % (0-5); BASOPHILS 4 % (0-1); EOSINOPHILS 2 % (0-3); LYMPHOCYTES 31 % (16-44); MONOCYTES 5 % (0-5); NEUTROPHILS 23 % (28-66)
[2023-10-23 10:33] LABS: MICROCYTOSIS 3+
[2023-10-23 10:34] LABS: ANISOCYTOSIS 2+; POLYCHROMASIA 1+
[2023-10-23 10:37] LABS: SCHISTOCYTES 1+; STOMATOCYTES 1+
[2023-10-23 10:38] LABS: PLATELET ESTIMATE INCREASED (NORMAL)
== END ==
LOC: M LAB 07:35
PROVIDERS: ATTEND Nurse Practitioner Family
DX: Z01.818 Encounter for other preprocedural examination (principal); I10 Essential (primary) hypertension; E78.2 Mixed hyperlipidemia; E55.9 Vitamin D deficiency, unspecified; Z98.84 Bariatric surgery status; I48.92 Unspecified atrial flutter; E11.65 Type 2 diabetes mellitus with hyperglycemia

== ENCOUNTER → 2024-05-31 | Outpatient (CLI) | payer MEDICARE, BC ==
[2024-05-31 15:23] LABS: HEMATOCRIT 31.1 % (42.0-52.0); HEMOGLOBIN 10.2 g/dl (13.5-17.5); MEAN CORPUSCULAR HEMOGLOBIN 22.1 pg (27.0-33.0); MEAN CORPUSCULAR HGB CONC 32.8 g/dl (32.0-36.5); MEAN CORPUSCULAR VOLUME 67.5 fl (80.0-96.0); PLATELET COUNT, AUTOMATED 451 10^3/uL (150-450); RED BLOOD COUNT 4.61 10^6/uL (4.30-6.10); WHITE BLOOD COUNT 10.6 10^3/uL (4.0-10.0)
[2024-05-31 15:56] LABS: BLOOD UREA NITROGEN 15 MG/DL (9-23); CALCIUM LEVEL 9.3 MG/DL (8.3-10.6); CARBON DIOXIDE LEVEL 28 MMOL/L (20-31); CHLORIDE LEVEL 104 MMOL/L (98-107); CREATININE FOR GFR 0.52 MG/DL (0.70-1.30); GLOMERULAR FILTRATION RATE > 60.0 (>49); GLUCOSE, FASTING 145 MG/DL (74-106); POTASSIUM SERUM 4.6 MMOL/L (3.5-5.1); SODIUM LEVEL 138 MMOL/L (136-145)
== END ==
LOC: M LAB 14:20
PROVIDERS: ATTEND Physician Assistant
DX: I48.3 Typical atrial flutter (principal); I48.0 Paroxysmal atrial fibrillation; I10 Essential (primary) hypertension

== ENCOUNTER → 2024-10-25 | Outpatient (CLI) | payer BC, MEDICARE ==
[~2024-10-25] MED LIST changes: -ALPH600C PO; +ALPH600C2 PO
[2024-10-25 12:29] LABS: BASO # 0.1 10^3/uL (0.0-0.2); BASO % 1.2 % (0.0-1.0); EOS # 0.5 10^3/uL (0.0-0.5); EOS % 5.7 % (0.0-3.0); HEMATOCRIT 33.4 % (42.0-52.0); HEMOGLOBIN 10.9 g/dl (13.5-17.5); LYMPH # 4.5 10^3/uL (1.5-5.0); LYMPH % 51.1 % (24.0-44.0); MEAN CORPUSCULAR HEMOGLOBIN 22.6 pg (27.0-33.0); MEAN CORPUSCULAR HGB CONC 32.6 g/dl (32.0-36.5); MEAN CORPUSCULAR VOLUME 69.3 fl (80.0-96.0); MONO # 0.8 10^3/uL (0.0-0.8); MONO % 8.7 % (2.0-8.0); NEUTROPHILS # 2.9 10^3/uL (1.5-8.5); NEUTROPHILS % 33.2 % (36.0-66.0); PLATELET COUNT, AUTOMATED 459 10^3/uL (150-450); RED BLOOD COUNT 4.82 10^6/uL (4.30-6.10); WHITE BLOOD COUNT 8.8 10^3/uL (4.0-10.0)
[2024-10-25 12:41] LABS: HEMOGLOBIN A1c 5.8 % (4.0-6.0)
[2024-10-25 12:42] LABS: CREATININE, URINE 53.3 MG/DL
[2024-10-25 12:45] LABS: FOLATE > 24.0 NG/ML (>5.4); MAU/CREAT RATIO 28.1 MCG/MG (0.0-30.0)
[2024-10-25 12:46] LABS: FERRITIN 180.9 NG/ML (10.5-307.3); IRON (FE) 117 UG/DL (65-175)
[2024-10-25 12:47] LABS: ALBUMIN 3.7 G/DL (3.2-5.2); ALKALINE PHOSPHATASE 48 U/L (40-129); ALT/SGPT 11 U/L (7.0-40); AST/SGOT 10 U/L (<34); BILIRUBIN,TOTAL 1.7 MG/DL (0.3-1.2); BLOOD UREA NITROGEN 16 MG/DL (9-23); CALCIUM LEVEL 9.2 MG/DL (8.3-10.6); CARBON DIOXIDE LEVEL 26 MMOL/L (20-31); CHLORIDE LEVEL 103 MMOL/L (98-107); CHOLESTEROL LEVEL 112 MG/DL (<200); CHOLESTEROL RISK RATIO 2.69 (<5); CREATININE FOR GFR 0.63 MG/DL (0.70-1.30); GLOMERULAR FILTRATION RATE > 90.0 (>49); GLUCOSE, FASTING 129 MG/DL (74-106); HDL CHOLESTEROL 41.6 MG/DL (>40); LDL CHOLESTEROL 49.2 MG/DL (<100); NON-HDL-C 70.4 MG/DL; POTASSIUM SERUM 4.7 MMOL/L (3.5-5.1); SODIUM LEVEL 140 MMOL/L (136-145); TOTAL IRON BINDING CAPACITY 260 UG/DL (250-425); TOTAL PROTEIN 6.3 G/DL (5.7-8.2); TRIGLYCERIDES LEVEL 106 MG/DL (<150); VITAMIN B12 LEVEL 562 PG/ML (211-911)
== END ==
LOC: M PLALAB 07:35
PROVIDERS: ATTEND Nurse Practitioner Family
DX: I10 Essential (primary) hypertension (principal); Z98.84 Bariatric surgery status

== ENCOUNTER → 2025-01-11 | Outpatient (CLI) | payer BC, MEDICARE ==
[2025-01-11 17:30] LABS: BASO # 0.1 10^3/uL (0.0-0.2); BASO % 1.3 % (0.0-1.0); EOS # 0.3 10^3/uL (0.0-0.5); EOS % 3.8 % (0.0-3.0); LYMPH # 4.1 10^3/uL (1.5-5.0); LYMPH % 45.4 % (24.0-44.0); MONO # 0.8 10^3/uL (0.0-0.8); MONO % 8.9 % (2.0-8.0); NEUTROPHILS # 3.6 10^3/uL (1.5-8.5); NEUTROPHILS % 40.4 % (36.0-66.0); PLATELET COUNT, AUTOMATED 410 10^3/uL (150-450)
[2025-01-11 18:00] LABS: ALT/SGPT 12 U/L (7.0-40); AST/SGOT 16 U/L (<34); CALCIUM LEVEL 9.7 MG/DL (8.3-10.6); CARBON DIOXIDE LEVEL 27 MMOL/L (20-31); CHLORIDE LEVEL 102 MMOL/L (98-107); CREATININE FOR GFR 0.67 MG/DL (0.70-1.30); GLOMERULAR FILTRATION RATE > 90.0 (>49); MAGNESIUM LEVEL 2.1 MG/DL (1.8-2.4); POTASSIUM SERUM 5.0 MMOL/L (3.5-5.1); SODIUM LEVEL 141 MMOL/L (136-145)
[2025-01-11 18:03] LABS: FREE T4 1.19 NG/DL (0.89-1.76)
== END ==
LOC: M PLALAB 15:33
PROVIDERS: ATTEND Nurse Practitioner Family
DX: I48.92 Unspecified atrial flutter (principal)

== ENCOUNTER → 2025-05-02 | Outpatient (CLI) | payer BC, MEDICARE ==
[2025-05-02 14:30] LABS: ESTIMATED AVERAGE GLUCOSE 137.0 MG/DL (60-110)
== END ==
LOC: M PLALAB 10:20
PROVIDERS: ATTEND Nurse Practitioner Family
DX: E11.65 Type 2 diabetes mellitus with hyperglycemia (principal)